=== PATIENT | male | born 1955 | race Two or more races ===

== ENCOUNTER 2016-11-02 14:37 | Inpatient (IN) | payer MEDICAID ==
[~2016-11-02] VITALS: Ht 162.6 cm; Wt 65.3 kg
[2016-11-02 14:40] VITALS: BP 179/70
[2016-11-02] MEDS ORDERED: RENAGEL400 MG ORAL (14:44)
[2016-11-02] MEDS ORDERED: SENSIPAR30 MG ORAL ×2 (14:44→15:47)
[2016-11-02] MEDS ORDERED: ACETAMINOPHEN325 M1 ORAL (14:44)
[2016-11-02] MEDS ORDERED: DIOVAN160 MG ORAL (14:44)
[2016-11-02] MEDS ORDERED: HYDRALAZINE HCL50 MG ORAL (14:44)
[2016-11-02] MEDS ORDERED: CARVEDILOL6.25 MG ORAL (14:44)
[2016-11-02] MEDS ORDERED: NORVASC10 MG ORAL (14:44)
[2016-11-02] MEDS ORDERED: ATORVASTATIN CA20 MG ORAL (14:44)
[2016-11-02 15:26] LABS: BASOPHILS % (AUTO) 0.9 % (0.0-2.0); EOSINOPHILS % (AUTO) 3.4 % (0.0-3.0); LYMPHOCYTES % (AUTO) 15.2 % (20.0-45.0); MEAN CORPUSCULAR HEMOGLOBIN 31.3 PG (27.0-31.0); MEAN CORPUSCULAR HGB CONC 33.1 G/DL (32.0-36.0); MEAN CORPUSCULAR VOLUME 95 FL (80-99); MEAN PLATELET VOLUME 5.9 FL (6.5-10.1); MONOCYTES % (AUTO) 12.2 % (1.0-10.0); NEUTROPHILS % (AUTO) 68.2 % (45.0-75.0); PLATELET COUNT 180 K/UL (150-450); RED BLOOD COUNT 3.22 M/UL (4.70-6.10); RED CELL DISTRIBUTION WIDTH 12.1 % (11.6-14.8); WHITE BLOOD COUNT 6.7 K/UL (4.8-10.8)
--- NOTE | 2016-11-02 15:37 | Diagnostic Imaging Report ---
Indication: Chest pain Technique: One view of the chest Comparison: none Findings: The heart is enlarged. Lungs and pleural spaces are clear. The bones are unremarkable. Impression: Cardiomegaly. No acute process
[2016-11-02 15:45] LABS: TROPONIN I < 0.30 ng/mL (<=0.30)
[2016-11-02] MEDS ORDERED: DEXILANT30 MG ORAL (15:45)
[2016-11-02] MEDS ORDERED: RENAGEL800 MG ORAL (15:46)
[2016-11-02 15:48] LABS: ALBUMIN/GLOBULIN RATIO 2.2 (1.0-2.7); CALCIUM 9.5 mg/dL (8.6-10.2); CREATININE 4.1 mg/dL (0.7-1.2); GLOMERULAR FILTRATION RATE 14.8 mL/min (>60); POTASSIUM 3.5 mEQ/L (3.4-4.9); TOTAL PROTEIN 6.5 g/dL (6.6-8.7)
--- NOTE | 2016-11-02 15:49 | Diagnostic Imaging Report ---
Indications: Headache, dizziness Technique: Spiral acquisitions obtained through the brain. Angled axial and coronal 5 x 5 mm slices were reconstructed. Total dose length product 1358 mGycm. CTDI vol(s) 70 mGy. Dose reduction achieved using automated exposure control Comparison: None Findings: No acute intracranial hemorrhage or edema. No mass effect or midline shift. There is an old lacunar infarct in the anterior limb of the right internal capsule, and perhaps a separate one in the right lentiform nucleus. There is minimal age-related enlargement of the ventricles and extra-axial CSF spaces. There is fairly extensive periventricular deep white matter chronic ischemic change the mastoids are clear. Sinuses are clear. The calvarium is intact. Impression: Chronic and age-related changes, including old right basal ganglia lacunar infarcts. Negative for acute intracranial bleed or mass effect The CT scanner at [facility] is accredited by the [employer] and the scans are performed using protocols designed to limit radiation exposure to as low as reasonably achievable to attain images of sufficient resolution adequate for diagnostic evaluation.
[2016-11-02 15:58] LABS: CKMB 1.5 ng/mL (< 6.7)
[2016-11-02] MEDS ORDERED: Miralax 17gm pkt ORAL PRN (16:15)
[2016-11-02] MEDS ORDERED: DuoNeb 0.5-3(2.5)mg/3ml neb HHN PRN (16:15)
--- NOTE | 2016-11-02 16:23 | Emergency Room Report ---
History of Present Illness General Chief Complaint: Dizziness Source: Patient Present Illness HPI 61-year-old male presents to ED for evaluation. Per EMS patient complaining of dizziness and vomiting. Patient was at dialysis today. Patient completed dialysis. Patient states he was feeling dizzy before the dialysis. Denies chest pain or shortness of breath. states that patient always gets dizzy after dialysis however she called 911 this time because he also had a headache. Blood pressure is elevated in triage. No other aggravating relieving factors. 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 Hx Cerebrovascular Accident: No Hx Seizures: No Review of Systems All Other Systems: negative except mentioned in HPI Physical Exam Vital Signs Date Time Temp Pulse Resp B/P Pulse Ox O2 Delivery O2 Flow Rate FiO2 11/02/16 14:26 98.2 78 16 184/86 96 Room Air Sp02 EP Interpretation: reviewed, normal General Appearance: no apparent distress, alert, GCS 15, non-toxic Head: normocephalic, atraumatic Eyes: bilateral eye PERRL, bilateral eye normal inspection ENT: hearing grossly normal, normal pharynx, no angioedema, normal voice Neck: full range of motion, supple/symm/no masses Respiratory: chest non-tender, lungs clear, normal breath sounds, speaking full sentences Cardiovascular #1: regular rate, rhythm, no edema Cardiovascular #2: 2+ carotid (R), 2+ carotid (L), 2+ radial (R), 2+ radial (L) , 2+ dorsalis pedis (R), 2+ dorsalis pedis (L) Gastrointestinal: normal bowel sounds, non tender, soft, non-distended, no guarding, no rebound Rectal: deferred Genitourinary: normal inspection, no CVA tenderness Musculoskeletal: back normal, gait/station normal, normal range of motion, non- tender Neurologic: alert, oriented x3, responsive, motor strength/tone normal, sensory intact, speech normal Psychiatric: judgement/insight normal, memory normal, mood/affect normal, no suicidal/homicidal ideation Reflexes: 3+ bicep (R), 3+ bicep (L), 3+ tricep (R), 3+ tricep (L), 3+ knee (R) , 3+ knee (L) Skin: normal color, no rash, warm/dry, well hydrated Lymphatic: no adenopathy Medical Decision Making Diagnostic Impression: Primary Impression: Hypertensive urgency Additional Impressions: ESRF (end stage renal failure) Dizziness ER Course Hospital Course 61-year-old male presents ED complaining of vomiting, dizziness, elevated BP. finished dialysis today Differential diagnoses include: MT/unstable angina, CVA/TIA, hypertensive urgency, hyperkalemia Clinical course Patient placed on stretcher. on cardiac cath lab radiology technologist. After initial history and physical I ordered labs, EKG, chest x-ray, CT Head, zofran labs reviewed- no leukocytosis, hemoglobin/hematocrit stable, BUN/Cr elevated, K ok, troponins negative EKG - repolarization, LVH interpreted by me Chest x-ray- unremarkable, cardiomegaly CT head negative Patient given hydralazine with BP improved. On reassessment dizziness and nausea improved Case discussed with Dr. Jung and he agreed to accept the patient to his service for further care and support I. I feel this is a highly complex case requiring extensive working including EKG/Rhythm strip, Xray/CT/US, Blood/urine lab work, repeat exams while in ED, and administration of strong opiates/narcotics for pain control, admission to hospital or close patient follow up. Diagnosis - hypertensive urgency, ESRF, dizziness admitted to telemetry in serious condition Labs Test 11/02/16 15:10 White Blood Count 6.7 K/UL (4.8-10.8) Red Blood Count 3.22 M/UL (4.70-6.10) Hemoglobin 10.1 G/DL (14.2-18.0) Hematocrit 30.5 % (42.0-52.0) Mean Corpuscular Volume 95 FL (80-99) Mean Corpuscular Hemoglobin 31.3 PG (27.0-31.0) Mean Corpuscular Hemoglobin Concent 33.1 G/DL (32.0-36.0) Red Cell Distribution Width 12.1 % (11.6-14.8) Platelet Count 180 K/UL (150-450) Mean Platelet Volume 5.9 FL (6.5-10.1) Neutrophils (%) (Auto) 68.2 % (45.0-75.0) Lymphocytes (%) (Auto) 15.2 % (20.0-45.0) Monocytes (%) (Auto) 12.2 % (1.0-10.0) Eosinophils (%) (Auto) 3.4 % (0.0-3.0) Basophils (%) (Auto) 0.9 % (0.0-2.0) Sodium Level 141 mEQ/L (135-145) Potassium Level 3.5 mEQ/L (3.4-4.9) Chloride Level 94 mEQ/L (98-107) Carbon Dioxide Level 34 mEQ/L (20-30) Anion Gap 13 (5-15) Blood Urea Nitrogen 15 mg/dL (7-23) Creatinine 4.1 mg/dL (0.7-1.2) Estimat Glomerular Filtration Rate 14.8 mL/min (>60) Glucose Level 104 mg/dL (74-106) Calcium Level 9.5 mg/dL (8.6-10.2) Total Bilirubin 0.5 mg/dL (0.0-1.2) Aspartate Amino Transf (AST/SGOT) 15 U/L (5-40) Alanine Aminotransferase (ALT/SGPT) 9 U/L (3-41) Alkaline Phosphatase 101 U/L (40-129) Total Creatine Kinase 144 U/L (38-174) Creatine Kinase MB 1.5 ng/mL (< 6.7) Creatine Kinase MB Relative Index 1.0 Troponin I < 0.30 ng/mL (<=0.30) Pro-B-Type Natriuretic Peptide 51300 pg/mL (0-125) Total Protein 6.5 g/dL (6.6-8.7) Albumin 4.5 g/dL (3.5-5.2) Globulin 2.0 g/dL Albumin/Globulin Ratio 2.2 (1.0-2.7) EKG Diagnostic Results Rate: normal Rhythm: NSR ST Segments: other - LVH with repolarization abnormality ASA given to the pt in ED: No Rhythm Strip Diag. Results EP Interpretation: yes Rhythm: NSR, no PVC's, no ectopy Chest X-Ray Diagnostic Results EP Interpretation: No Findings: no consolidation, no effusion, no pneumothorax, no acute cardiopulmonary disease, other - cardiomegaly Number of Views: 1 CT/MRI/US Diagnostic Results CT/MRI/US Diagnostic Results : Imaging Test Ordered: CT Head Impression no acute process Last Vital Signs Date Time Temp Pulse Resp B/P Pulse Ox O2 Delivery O2 Flow Rate FiO2 11/02/16 14:40 97.9 64 23 179/70 94 Room Air Status: improved Disposition: ADMITTED INPATIENT Condition: Serious Referrals: NON PHYSICIAN (PCP) MICHELL QUICK M.D. Nov 02, 2016 16:23
[2016-11-02 16:30] VITALS: BP 176/72
[2016-11-02 17:37] VITALS: BP 146/64
[2016-11-02] MEDS: HydrALAZINE 50mg tab ORAL SCH ×2 (18:00→22:08)
[2016-11-02 18:40] VITALS: BP 152/69
[2016-11-02 20:22] VITALS: BP 145/68
[2016-11-02 20:58] VITALS: BP 154/84
[2016-11-02] MEDS ORDERED: Morphine Sulfate 2mg/ml Inj IVP PRN (22:00)
[2016-11-02] MEDS: Heparin 5000 units/ml inj SUBQ SCH (22:08)
[2016-11-02] MEDS: Atorvastatin 20mg tab ORAL SCH (22:08)
[2016-11-02] MEDS: Carvedilol 6.25mg Tab ORAL SCH (22:08)
[2016-11-03 00:14] VITALS: BP 155/79
[2016-11-03 04:20] VITALS: BP 151/79
[2016-11-03] MEDS ORDERED: Morphine Sulfate 2mg/ml Inj IVP PRN (06:00)
[2016-11-03 07:48] VITALS: BP 182/82
[2016-11-03] MEDS: HydrALAZINE 50mg tab ORAL SCH ×3 (08:10→21:33)
[2016-11-03] MEDS: Carvedilol 6.25mg Tab ORAL SCH ×2 (08:11→21:21)
[2016-11-03] MEDS: Renagel 400mg cap ORAL SCH ×3 (08:12→17:40)
[2016-11-03] MEDS: Heparin 5000 units/ml inj SUBQ SCH ×2 (08:14→21:24)
[2016-11-03] MEDS ORDERED: Sensipar 30mg Tab ORAL SCH (09:00)
[2016-11-03 11:22] VITALS: BP 155/87
--- NOTE | 2016-11-03 13:41 | Consultation ---
History of Present Illness General Date patient seen: Nov 03, 2016 Chief Complaint: Dizziness Referring physician: Dr. Bhat Reason for Consultation: inpatient management Present Illness HPI 61-year-old male with hx of HTN, DM presents to ED for evaluation of dizziness and vomiting. Patient was at dialysis today when he started feeling dizzy before the dialysis. Denies chest pain or shortness of breath. states that patient always gets dizzy after dialysis however she called 911 this time because he also had a headache. Blood pressure is elevated in triage. No other aggravating relieving factors. Pt is admitted for further evaluation. Allergies: Coded Allergies: No Known Allergies (Unverified , 11/02/16) Medication History Scheduled Amlodipine Besylate (Norvasc), 10 MG ORAL DAILY, (Reported) Atorvastatin Calcium* (Atorvastatin Calcium*), 20 MG ORAL BEDTIME, (Reported) Carvedilol* (Carvedilol*), 6.25 MG ORAL EVERY 12 HOURS, (Reported) Cinacalcet* (Sensipar*), 90 MG ORAL DAILY, (Reported) Cinacalcet* (Sensipar*), 90 MG ORAL DAILY, (Reported) Dexlansoprazole (Dexilant), 30 MG ORAL DAILY, (Reported) Hydralazine Hcl* (Hydralazine Hcl*), 50 MG ORAL QID, (Reported) Sevelamer Hcl (Renagel), 2,400 MG ORAL THREE TIMES A DAY, (Reported) Valsartan (Diovan), 320 MG ORAL DAILY, (Reported) Scheduled PRN Acetaminophen* (Acetaminophen 325MG Tablet*), 325 MG ORAL Q4H PRN for For Pain, (Reported) Patient History Healthcare decision maker Resuscitation status Full Code Advanced Directive on File Past Medical/Surgical History Past Medical/Surgical History: (1) ESRF (end stage renal failure) Review of Systems Constitutional: Reports: weakness All Other Systems: negative except mentioned in HPI Physical Exam General Appearance: WD/WN, no apparent distress Lines, tubes and drains: peripheral HEENT: normocephalic, atraumatic Neck: non-tender, normal alignment Respiratory/Chest: chest wall non-tender, lungs clear Breasts: no masses Cardiovascular/Chest: normal peripheral pulses, normal rate Abdomen: normal bowel sounds Genitourinary/Rectal: normal genital exam, normal prostate exam Extremities: normal range of motion Last 24 Hour Vital Signs Date Time Temp Pulse Resp B/P Pulse Ox O2 Delivery O2 Flow Rate FiO2 11/03/16 12:53 155/87 11/03/16 12:00 68 11/03/16 11:22 97.7 69 20 155/87 99 Room Air 11/03/16 08:11 71 182/82 11/03/16 08:11 71 182/82 11/03/16 08:10 182/82 11/03/16 08:00 68 11/03/16 07:48 98.2 71 20 182/82 95 Room Air 11/03/16 04:20 98.3 67 20 151/79 98 Room Air 11/03/16 04:00 63 11/03/16 00:14 97.8 69 20 155/79 96 Room Air 11/03/16 00:00 66 11/02/16 22:08 154/84 11/02/16 22:08 71 154/84 11/02/16 20:58 97.9 71 18 154/84 95 Room Air 11/02/16 20:40 98.4 69 18 145/68 98 Room Air 11/02/16 20:22 98.4 69 18 145/68 98 Room Air 11/02/16 18:40 98.4 68 18 152/69 97 Room Air 11/02/16 18:00 152/69 11/02/16 17:37 70 19 146/64 94 Room Air 11/02/16 16:30 68 21 176/72 97 Room Air 11/02/16 16:21 176/79 11/02/16 14:40 97.9 64 23 179/70 94 Room Air 11/02/16 14:26 98.2 78 16 184/86 96 Room Air Intake and Output 11/02/16 11/03/16 19:00 07:00 Intake Total 345 ml Balance 345 ml Intake Oral 120 ml IV Total 225 ml Other 0 ml Laboratory Tests Test 11/02/16 15:10 White Blood Count 6.7 K/UL (4.8-10.8) Red Blood Count 3.22 M/UL (4.70-6.10) L Hemoglobin 10.1 G/DL (14.2-18.0) L Hematocrit 30.5 % (42.0-52.0) L Mean Corpuscular Volume 95 FL (80-99) Mean Corpuscular Hemoglobin 31.3 PG (27.0-31.0) H Mean Corpuscular Hemoglobin Concent 33.1 G/DL (32.0-36.0) Red Cell Distribution Width 12.1 % (11.6-14.8) Platelet Count 180 K/UL (150-450) Mean Platelet Volume 5.9 FL (6.5-10.1) L Neutrophils (%) (Auto) 68.2 % (45.0-75.0) Lymphocytes (%) (Auto) 15.2 % (20.0-45.0) L Monocytes (%) (Auto) 12.2 % (1.0-10.0) H Eosinophils (%) (Auto) 3.4 % (0.0-3.0) H Basophils (%) (Auto) 0.9 % (0.0-2.0) Sodium Level 141 mEQ/L (135-145) Potassium Level 3.5 mEQ/L (3.4-4.9) Chloride Level 94 mEQ/L (98-107) L Carbon Dioxide Level 34 mEQ/L (20-30) H Anion Gap 13 (5-15) Blood Urea Nitrogen 15 mg/dL (7-23) Creatinine 4.1 mg/dL (0.7-1.2) H Estimat Glomerular Filtration Rate 14.8 mL/min (>60) Glucose Level 104 mg/dL (74-106) Calcium Level 9.5 mg/dL (8.6-10.2) Total Bilirubin 0.5 mg/dL (0.0-1.2) Aspartate Amino Transf (AST/SGOT) 15 U/L (5-40) Alanine Aminotransferase (ALT/SGPT) 9 U/L (3-41) Alkaline Phosphatase 101 U/L (40-129) Total Creatine Kinase 144 U/L (38-174) Creatine Kinase MB 1.5 ng/mL (< 6.7) Creatine Kinase MB Relative Index 1.0 Troponin I < 0.30 ng/mL (<=0.30) Pro-B-Type Natriuretic Peptide 77853 pg/mL (0-125) H Total Protein 6.5 g/dL (6.6-8.7) L Albumin 4.5 g/dL (3.5-5.2) Globulin 2.0 g/dL Albumin/Globulin Ratio 2.2 (1.0-2.7) Height (Feet): 5 Height (Inches): 4.00 Weight (Pounds): 144 Medications Current Medications Medications (Trade) Dose Ordered Sig/Junior Route PRN Reason Start Time Stop Time Status Last Admin Dose Admin Acetaminophen (Tylenol) 650 mg Q4H PRN ORAL Mild Pain/Temp > 100.5 11/03/16 00:15 12/03/16 00:14 Albuterol/ Ipratropium (DuoNeb 0.5-3(2.5)mg/3ml) 3 ml Q4H PRN HHN Shortness of Breath 11/02/16 16:15 11/07/16 16:14 Amlodipine Besylate (Norvasc) 10 mg DAILY ORAL 11/03/16 09:00 12/03/16 08:59 11/03/16 08:11 Atorvastatin Calcium (Lipitor) 20 mg BEDTIME ORAL 11/02/16 21:00 12/02/16 20:59 11/02/16 22:08 Carvedilol (Coreg) 6.25 mg EVERY 12 HOURS ORAL 11/02/16 21:00 12/02/16 20:59 11/03/16 08:11 Cinacalcet (Sensipar) 90 mg DAILY ORAL 11/03/16 09:00 12/03/16 08:59 11/03/16 08:12 Dextrose (Dextrose 50%) STAT PRN IV Hypoglycemia 11/02/16 16:15 12/02/16 16:14 Heparin Sodium (Porcine) (Heparin 5000 units/ml) 5,000 units EVERY 12 HOURS SUBQ 11/02/16 21:00 12/02/16 20:59 11/03/16 08:14 Hydralazine HCl (Apresoline) 50 mg QID ORAL 11/02/16 18:00 12/02/16 17:59 11/03/16 12:53 Morphine Sulfate (Morphine Sulfate) 2 mg Q4H PRN IVP Severe Pain (Pain Scale 7-10) 11/03/16 06:00 11/10/16 05:59 Ondansetron HCl (Zofran) 4 mg Q6H PRN IVP Nausea & Vomiting 11/02/16 16:15 12/02/16 16:14 Polyethylene Glycol (Miralax) 17 gm DAILYPRN PRN ORAL Constipation 11/02/16 16:15 12/02/16 16:14 Sevelamer HCl (Renagel) 400 mg THREE TIMES A DAY ORAL 11/03/16 09:00 12/03/16 08:59 11/03/16 12:53 Temazepam (Restoril) 15 mg HSPRN PRN ORAL Insomnia 11/02/16 16:15 11/09/16 16:14 Assessment/Plan Problem List: (1) Hypertensive urgency ICD Codes: I16.0 - Hypertensive urgency SNOMED: 173541342 (2) Dizziness ICD Codes: R42 - Dizziness and giddiness SNOMED: 686575951, 254626681 (3) ESRF (end stage renal failure) ICD Codes: N18.6 - End stage renal disease SNOMED: 25750753 Assessment/Plan telemetry monitoring bp control nephrology to arrange for Hd neuro evaluation JAUN VARGHESE Nov 03, 2016 13:41
--- NOTE | 2016-11-03 14:47 | Consultation ---
Consult Note Consult Note asked to miladis [facility]iera dialysis management 61-year-old male presents to ED for evaluation. Per EMS patient complaining of dizziness and vomiting. Patient was at dialysis today. Patient completed dialysis. Patient states he was feeling dizzy before the dialysis. Denies chest pain or shortness of breath. states that patient always gets dizzy after dialysis however she called 911 this time because he also had a headache. Blood pressure is elevated in triage. No other aggravating relieving factors. Denies any other associated symptoms Past Medical History: HTN, renal disease, dialysis Hx Hypertension: Yes Hx Dialysis: Yes patient been on HD for 7 years- has a fistula left arm- Vital Signs Date Time Temp Pulse Resp B/P Pulse Ox O2 Delivery O2 Flow Rate FiO2 11/02/16 14:26 98.2 78 16 184/86 96 Room Air Assessment/Plan status: ESRD- HTN- Dizziness- Plan: HD in am as scheduled- BP control Per consultants TONNY MTZ Nov 03, 2016 14:47
[2016-11-03 15:23] VITALS: BP 146/75
--- NOTE | 2016-11-03 19:16 | History & Physical ---
History and Physical History & Physicial Dictated for Int Med-Dr Jung no. [id number]. LU GREENE Nov 03, 2016 19:16
--- NOTE | 2016-11-03 19:58 | Cardiology Progress Note ---
Assessment/Plan Assessment/Plan The patient is seen and examined, full consult note is dictated. Objective Last 24 Hour Vital Signs Date Time Temp Pulse Resp B/P Pulse Ox O2 Delivery O2 Flow Rate FiO2 11/03/16 16:00 68 11/03/16 15:23 97.5 67 20 146/75 96 Room Air 11/03/16 12:53 155/87 11/03/16 12:00 68 11/03/16 11:22 97.7 69 20 155/87 99 Room Air 11/03/16 08:11 71 182/82 11/03/16 08:11 71 182/82 11/03/16 08:10 182/82 11/03/16 08:00 68 11/03/16 07:48 98.2 71 20 182/82 95 Room Air 11/03/16 04:20 98.3 67 20 151/79 98 Room Air 11/03/16 04:00 63 11/03/16 00:14 97.8 69 20 155/79 96 Room Air 11/03/16 00:00 66 11/02/16 22:08 154/84 11/02/16 22:08 71 154/84 11/02/16 20:58 97.9 71 18 154/84 95 Room Air 11/02/16 20:40 98.4 69 18 145/68 98 Room Air 11/02/16 20:22 98.4 69 18 145/68 98 Room Air Intake and Output 11/02/16 11/03/16 19:00 07:00 Intake Total 345 ml Balance 345 ml Intake Oral 120 ml IV Total 225 ml Other 0 ml OSORIO OLGUIN Nov 03, 2016 19:58
[2016-11-03 20:00] VITALS: BP 150/72
[2016-11-03] MEDS: Atorvastatin 20mg tab ORAL SCH (21:22)
--- NOTE | 2016-11-03 23:00 | History and Physical Report ---
DATE OF ADMISSION: 11/02/2016 CHIEF COMPLAINT: The patient is a 61-year-old male, presents with chief complaint of nausea, vomiting, and dizziness. HISTORY OF PRESENT ILLNESS: The patient was in dialysis yesterday, 11/02/2016. The patient began to feel dizzy after dialysis. The patient has some nausea and vomiting. The 911 was called. The patient was transported to [place] emergency room for evaluation for vertigo, nausea and vomiting. The patient was admitted with chief complaint of vertigo, nausea, vomiting, to rule out acute cerebrovascular accident. REVIEW OF SYSTEMS: Constitutional: The patient denies weight loss or weight gain. The patient denies fever or chills. HEENT: The patient denies ear or throat pain. Cardiovascular: The patient denies palpitations or chest pain. Chest: The patient denies wheezes or shortness of breath. Abdominal: The patient complains of nausea and vomiting. The patient denies diarrhea or constipation. Genitourinary: The patient denies dysuria or increased frequency of urination. Neuromuscular: The patient denies seizures or generalized weakness. PAST MEDICAL HISTORY: Significant for: 1. Hypertension. 2. End-stage renal disease, the patient is on hemodialysis every Sunday, , and Sunday. PAST SURGICAL HISTORY: Significant for left arteriovenous graft placement in 2010. CURRENT MEDICATIONS: 1. Sensipar 90 mg one tablet p.o. daily. 2. Labetalol 100 mg one tablet p.o. twice daily. 3. Hydralazine 100 mg one tablet p.o. twice daily. 4. Clonidine 0.1 mg one tablet p.o. three times daily. 5. Omeprazole 20 mg one tablet p.o. daily. 6. Renagel 800 mg one tablet p.o. three times daily. 7. Valsartan 320 mg one tablet p.o. once daily. 8. Hydralazine 50 mg one tablet p.o. four times daily as needed. ALLERGIES: No known drug allergies. SOCIAL HISTORY: The patient is and disabled. The patient denies tobacco or alcohol use. PHYSICAL EXAMINATION: VITAL SIGNS: Temperature 97.5, respirations 20, pulse 67, and blood pressure 146-182/75-87. GENERAL: The patient is well-developed and well-nourished male, in no apparent distress. HEENT: Eyes, pupils are equal and responsive to light and accommodation. Extraocular movements are intact. NECK: Supple without lymphadenopathy. CHEST: Lungs are clear to auscultation bilaterally without wheezes or rales. CARDIOVASCULAR: Regular rhythm and rate. S1 and S2 are normal without murmurs, rubs, or gallops. ABDOMEN: Soft, nontender, and nondistended. Positive bowel sounds. No hepatosplenomegaly. Currently, no rebound or guarding noted. EXTREMITIES: Negative for clubbing, cyanosis, or edema. RECTAL/GENITAL: Refused. NEUROLOGIC: Cranial nerves II through XII are grossly intact without focal deficits. Motor strength is 5/5 bilaterally. Deep tendon reflexes are 2+ plantar. LABORATORY AND DIAGNOSTIC DATA: Laboratory Studies: WBC 6.7, hemoglobin 10.1, hematocrit 30.5, and platelets 180,000. Sodium 141, potassium 3.5, chloride 94, CO2 34, BUN 15, creatinine 4.1, and glucose 104. BNP elevated at 48,123. Troponin less than 0.3. CT scan of the brain was reported as no acute mass or hemorrhage. A chest x-ray is reported as no acute disease. ASSESSMENT: This is a 61-year-old male with: 1. Nausea and vomiting. 2. Vertigo. 3. END-STAGE RENAL DISEASE: 4. Congestive heart failure. 5. Hypertension. TREATMENT: 1. Congestive heart failure. Cardiology consultation has been obtained with Dr. Ian Wyatt. Serial troponin levels will be performed. We will follow recommendations of Cardiology. 2. Nausea and vomiting, may be secondary to vasovagal, secondary to dialysis. The patient's nausea and vomiting resolved with Zofran at this time. 3. Vertigo. A CT scan of the brain was within normal limits. An MRI of the brain is pending to rule out acute cerebrovascular accident. Carotid duplex and Dopplers are pending. An echocardiogram is pending. 4. Congestive heart failure. A Cardiology consultation has been obtained with Dr. Ian Wyatt. An echocardiogram is pending. Serial troponin levels will be run. 5. Hypertension. Continue hydralazine and labetalol as above. 6. End-stage renal disease. A Nephrology consultation has been obtained with Dr. Tejeda. The patient will require dialysis on 11/04/2016. Samson Medhat Bhat DR: KEVIN JOB#: [id number] CC:
[2016-11-04] VITALS: BP 165/81
[2016-11-04 04:00] VITALS: BP 180/82
[2016-11-04] MEDS: HydrALAZINE 50mg tab ORAL SCH ×2 (05:47→16:51)
[2016-11-04 08:00] VITALS: BP 153/80
[2016-11-04 08:21] LABS: ALANINE AMINOTRANSFERASE 10 U/L (3-41); ALBUMIN/GLOBULIN RATIO 1.8 (1.0-2.7); ANION GAP 16 (5-15); ASPARTATE AMINO TRANSFERASE 16 U/L (5-40); CARBON DIOXIDE 31 mEQ/L (20-30); CHLORIDE 92 mEQ/L (98-107); CHOLESTEROL 103 mg/dL (< 200); CHOLESTEROL/HDL RATIO 1.9 (3.3-4.4); CREATININE 8.9 mg/dL (0.7-1.2); CRP QUANT 0.6 mg/dL (< 0.5); GLOMERULAR FILTRATION RATE 6.1 mL/min (>60); LDL CHOLESTEROL (CALC.) 34 mg/dL (60-99); MAGNESIUM 2.2 mg/dL (1.7-2.5); PHOSPHORUS 4.5 mg/dL (2.5-4.8); POTASSIUM 4.2 mEQ/L (3.4-4.9); SODIUM 139 mEQ/L (135-145); TOTAL PROTEIN 6.5 g/dL (6.6-8.7); TROPONIN I < 0.30 ng/mL (<=0.30)
[2016-11-04 08:26] LABS: HEMOLYSIS 4; IRON 54 ug/dL (59-158); TOTAL IRON BINDING CAPACITY 232 ug/dL (250-400)
[2016-11-04] MEDS: Carvedilol 6.25mg Tab ORAL SCH ×2 (08:29→20:58)
[2016-11-04] MEDS: Renagel 400mg cap ORAL SCH ×3 (08:29→18:15)
[2016-11-04] MEDS: Heparin 5000 units/ml inj SUBQ SCH ×2 (08:31→21:00)
[2016-11-04 08:58] LABS: BASOPHILS % (AUTO) 1.2 % (0.0-2.0); EOSINOPHILS % (AUTO) 5.2 % (0.0-3.0); LYMPHOCYTES % (AUTO) 24.2 % (20.0-45.0); MEAN CORPUSCULAR HEMOGLOBIN 33.6 PG (27.0-31.0); MEAN CORPUSCULAR HGB CONC 35.2 G/DL (32.0-36.0); MEAN CORPUSCULAR VOLUME 96 FL (80-99); MEAN PLATELET VOLUME 6.7 FL (6.5-10.1); MONOCYTES % (AUTO) 11.8 % (1.0-10.0); NEUTROPHILS % (AUTO) 57.6 % (45.0-75.0); PLATELET COUNT 149 K/UL (150-450); RED BLOOD COUNT 2.76 M/UL (4.70-6.10); RED CELL DISTRIBUTION WIDTH 12.2 % (11.6-14.8); WHITE BLOOD COUNT 6.7 K/UL (4.8-10.8)
[2016-11-04 10:05] LABS: HEMOGLOBIN A1C 4.3 % (< 6.0)
[2016-11-04 12:00] VITALS: BP 145/74
--- NOTE | 2016-11-04 12:03 | General Progress Note ---
Assessment/Plan Status: unchanged Assessment/Plan status: ESRD- HTN- Dizziness- Plan: HD today as scheduled- BP control Per consultants Subjective ROS Limited/Unobtainable: No Allergies: Coded Allergies: No Known Allergies (Unverified , 11/02/16) Objective Last 24 Hour Vital Signs Date Time Temp Pulse Resp B/P Pulse Ox O2 Delivery O2 Flow Rate FiO2 11/04/16 08:29 67 153/80 11/04/16 08:29 67 153/80 11/04/16 08:00 97.9 67 18 153/80 Nasal Cannula 2.0 98 11/04/16 05:47 165/81 11/04/16 04:00 98.2 67 14 180/82 99 Room Air 11/04/16 03:59 165/81 11/04/16 01:47 71 11/04/16 00:00 98.1 69 20 165/81 94 Room Air 11/03/16 21:33 150/72 11/03/16 21:21 18 150/72 11/03/16 20:00 97.9 18 18 150/72 96 Room Air 11/03/16 20:00 68 11/03/16 16:00 68 11/03/16 15:23 97.5 67 20 146/75 96 Room Air 11/03/16 12:53 155/87 11/03/16 12:00 68 Intake and Output 11/03/16 11/04/16 19:00 07:00 Intake Total 630 ml Output Total 400 ml Balance 630 ml -400 ml Intake Oral 630 ml Output Urine Total 400 ml Laboratory Tests 11/04/16 07:05: White Blood Count 6.7, Red Blood Count 2.76L, Hemoglobin 9.3L, Hematocrit 26.4L , Mean Corpuscular Volume 96, Mean Corpuscular Hemoglobin 33.6H, Mean Corpuscular Hemoglobin Concent 35.2, Red Cell Distribution Width 12.2, Platelet Count 149L, Mean Platelet Volume 6.7, Neutrophils (%) (Auto) 57.6, Lymphocytes ( %) (Auto) 24.2, Monocytes (%) (Auto) 11.8H, Eosinophils (%) (Auto) 5.2H, Basophils (%) (Auto) 1.2, Sodium Level 139, Potassium Level 4.2, Chloride Level 92L, Carbon Dioxide Level 31H, Anion Gap 16H, Blood Urea Nitrogen 39H, Creatinine 8.9H, Estimat Glomerular Filtration Rate 6.1, Glucose Level 83, Hemoglobin A1c 4.3, Uric Acid 6.0, Calcium Level 9.0, Phosphorus Level 4.5, Magnesium Level 2.2, Iron Level 54L, Total Iron Binding Capacity 232L, Percent Iron Saturation 23, Unsaturated Iron Binding 178, Total Bilirubin 0.5, Gamma Glutamyl Transpeptidase 27, Aspartate Amino Transf (AST/SGOT) 16, Alanine Aminotransferase (ALT/SGPT) 10, Alkaline Phosphatase 96, Total Creatine Kinase 79, Troponin I < 0.30, C-Reactive Protein, Quantitative 0.6H, Pro-B-Type Natriuretic Peptide 53392S, Total Protein 6.5L, Albumin 4.2, Globulin 2.3, Albumin/Globulin Ratio 1.8, Triglycerides Level 80, Cholesterol Level 103, LDL Cholesterol 34L, HDL Cholesterol 53, Cholesterol/HDL Ratio 1.9L, Vitamin B12 Level 1345H, Thyroid Stimulating Hormone (TSH) 3.340 Height (Feet): 5 Height (Inches): 4.00 Weight (Pounds): 144 General Appearance: no apparent distress Objective no change in physical exam TONNY MTZ Nov 04, 2016 12:03
--- NOTE | 2016-11-04 14:46 | Cardiology Report ---
APPROVED REPORT EXAM: Two-dimensional and M-mode echocardiogram with Doppler and color Doppler. INDICATION LV function M-Mode DIMENSIONS IVSd1.8 (0.7-1.1cm)Left Atrium (MM)3.6 (1.6-4.0cm) LVDd5.0 (3.5-5.6cm)Aortic Root4.2 (2.0-3.7cm) PWd2.5 (0.7-1.1cm)Aortic Cusp Exc.1.8 (1.5-2.0cm) LVDs3.0 (2.5-4.0cm) PWs2.9 cm Normal left ventricular chamber size, systolic function and wall motion. Left ventricular ejection fraction estimated to be 60-65 %. Moderate left ventricular hypertrophy. Anterior Echo-free space, may be due to pericardial fat or effusion. Moderate left atrial enlargement. Mild right atrial enlargement. Right ventricular chamber size is within normal limits. Focal aortic valve sclerosis with adequate cusp excursion. Thickened mitral valve leaflets with normal excursion. Mitral annulus and aortic root calcification. Normal pulmonic valve structure. Normal tricuspid valve structure. IVC at normal size with physiologic collapse. A color flow and spectral Doppler study was performed and revealed: Trace aortic regurgitation. Moderate mitral regurgitation. Mitral diastolic velocities suggest reduced left ventricular relaxation c/w moderate LV diastolic dysfunction (Grade II). Mild tricuspid regurgitation. Tricuspid systolic velocities suggests peak right ventricular systolic pressure of 36 mmHg, consistent with mild pulmonary hypertension.
--- NOTE | 2016-11-04 15:54 | Internal Med Progress Note ---
Subjective Date of Service: Nov 04, 2016 Physician Name PerlitaLu Attending Physician Guy Jung MD Current Medications Medications (Trade) Dose Ordered Sig/Junior Route PRN Reason Start Time Stop Time Status Last Admin Dose Admin Acetaminophen (Tylenol) 650 mg Q4H PRN ORAL Mild Pain/Temp > 100.5 11/03/16 00:15 12/03/16 00:14 11/04/16 12:26 Albuterol/ Ipratropium (DuoNeb 0.5-3(2.5)mg/3ml) 3 ml Q4H PRN HHN Shortness of Breath 11/02/16 16:15 11/07/16 16:14 Amlodipine Besylate (Norvasc) 10 mg DAILY ORAL 11/03/16 09:00 12/03/16 08:59 11/04/16 08:29 Atorvastatin Calcium (Lipitor) 20 mg BEDTIME ORAL 11/02/16 21:00 12/02/16 20:59 11/03/16 21:22 Carvedilol (Coreg) 6.25 mg EVERY 12 HOURS ORAL 11/02/16 21:00 12/02/16 20:59 11/04/16 08:29 Cinacalcet (Sensipar) 90 mg QHS ORAL 11/04/16 21:00 12/04/16 20:59 Clonidine HCl (Catapres) 0.1 mg Q4H PRN ORAL bp over 165 syst 11/03/16 15:00 12/03/16 14:59 11/04/16 03:59 Dextrose (Dextrose 50%) STAT PRN IV Hypoglycemia 11/02/16 16:15 12/02/16 16:14 Heparin Sodium (Porcine) (Heparin 5000 units/ml) 5,000 units EVERY 12 HOURS SUBQ 11/02/16 21:00 12/02/16 20:59 11/04/16 08:31 Hydralazine HCl (Apresoline) 50 mg Q8HR ORAL 11/03/16 22:00 12/03/16 21:59 11/04/16 05:47 Morphine Sulfate (Morphine Sulfate) 2 mg Q4H PRN IVP Severe Pain (Pain Scale 7-10) 11/03/16 06:00 11/10/16 05:59 Ondansetron HCl (Zofran) 4 mg Q6H PRN IVP Nausea & Vomiting 11/02/16 16:15 12/02/16 16:14 Pantoprazole (Protonix) 40 mg DAILY ORAL 11/03/16 16:00 12/03/16 15:59 11/04/16 08:29 Polyethylene Glycol (Miralax) 17 gm DAILYPRN PRN ORAL Constipation 11/02/16 16:15 12/02/16 16:14 Sevelamer HCl (Renagel) 800 mg THREE TIMES A DAY ORAL 11/04/16 09:00 12/04/16 08:59 11/04/16 12:26 Temazepam (Restoril) 15 mg HSPRN PRN ORAL Insomnia 11/02/16 16:15 11/09/16 16:14 Allergies: Coded Allergies: No Known Allergies (Unverified , 11/02/16) ROS Limited/Unobtainable: No Constitutional: Reports: no symptoms HEENT: Reports: no symptoms Cardiovascular: Reports: no symptoms Respiratory: Reports: no symptoms Gastrointestinal/Abdominal: Reports: no symptoms Genitourinary: Reports: no symptoms Neurologic/Psychiatric: Reports: other - dizzy Subjective 61 YO M admitted with vertigo. Cover for Int Med-Dr Jung. Objective Last Vital Signs Date Time Temp Pulse Resp B/P Pulse Ox O2 Delivery O2 Flow Rate FiO2 11/04/16 12:50 Room Air 11/04/16 12:00 97.9 64 18 145/74 2.0 98 11/04/16 04:00 99 Laboratory Tests Test 11/04/16 07:05 White Blood Count 6.7 K/UL (4.8-10.8) Red Blood Count 2.76 M/UL (4.70-6.10) L Hemoglobin 9.3 G/DL (14.2-18.0) L Hematocrit 26.4 % (42.0-52.0) L Mean Corpuscular Volume 96 FL (80-99) Mean Corpuscular Hemoglobin 33.6 PG (27.0-31.0) H Mean Corpuscular Hemoglobin Concent 35.2 G/DL (32.0-36.0) Red Cell Distribution Width 12.2 % (11.6-14.8) Platelet Count 149 K/UL (150-450) L Mean Platelet Volume 6.7 FL (6.5-10.1) Neutrophils (%) (Auto) 57.6 % (45.0-75.0) Lymphocytes (%) (Auto) 24.2 % (20.0-45.0) Monocytes (%) (Auto) 11.8 % (1.0-10.0) H Eosinophils (%) (Auto) 5.2 % (0.0-3.0) H Basophils (%) (Auto) 1.2 % (0.0-2.0) Sodium Level 139 mEQ/L (135-145) Potassium Level 4.2 mEQ/L (3.4-4.9) Chloride Level 92 mEQ/L (98-107) L Carbon Dioxide Level 31 mEQ/L (20-30) H Anion Gap 16 (5-15) H Blood Urea Nitrogen 39 mg/dL (7-23) H Creatinine 8.9 mg/dL (0.7-1.2) H Estimat Glomerular Filtration Rate 6.1 mL/min (>60) Glucose Level 83 mg/dL (74-106) Hemoglobin A1c 4.3 % (< 6.0) Uric Acid 6.0 mg/dL (3.0-7.5) Calcium Level 9.0 mg/dL (8.6-10.2) Phosphorus Level 4.5 mg/dL (2.5-4.8) Magnesium Level 2.2 mg/dL (1.7-2.5) Iron Level 54 ug/dL (59-158) L Total Iron Binding Capacity 232 ug/dL (250-400) L Percent Iron Saturation 23 % (15-50) Unsaturated Iron Binding 178 ug/dL (112-346) Total Bilirubin 0.5 mg/dL (0.0-1.2) Gamma Glutamyl Transpeptidase 27 U/L (8-61) Aspartate Amino Transf (AST/SGOT) 16 U/L (5-40) Alanine Aminotransferase (ALT/SGPT) 10 U/L (3-41) Alkaline Phosphatase 96 U/L (40-129) Total Creatine Kinase 79 U/L (38-174) Troponin I < 0.30 ng/mL (<=0.30) C-Reactive Protein, Quantitative 0.6 mg/dL (< 0.5) H Pro-B-Type Natriuretic Peptide 62569 pg/mL (0-125) H Total Protein 6.5 g/dL (6.6-8.7) L Albumin 4.2 g/dL (3.5-5.2) Globulin 2.3 g/dL Albumin/Globulin Ratio 1.8 (1.0-2.7) Triglycerides Level 80 mg/dL (< 150) Cholesterol Level 103 mg/dL (< 200) LDL Cholesterol 34 mg/dL (60-99) L HDL Cholesterol 53 mg/dL (> 60) Cholesterol/HDL Ratio 1.9 (3.3-4.4) L Vitamin B12 Level 1345 pg/mL (211-946) H Thyroid Stimulating Hormone (TSH) 3.340 uIU/mL (0.300-4.500) Microbiology Date/Time Source Procedure Growth Status 11/02/16 18:10 Nasal Nares MRSA Culture - Final NO METHICILLIN RESISTANT STAPH AUREUS... Complete 11/02/16 18:10 Rectum VRE Culture - Final NO VANCOMYCIN RESISTANT ENTEROCOCCUS ... Complete Intake and Output 11/03/16 11/04/16 19:00 07:00 Intake Total 630 ml Output Total 400 ml Balance 630 ml -400 ml Intake Oral 630 ml Output Urine Total 400 ml Objective General: alert, cooperative, no distress, appears stated age Head: normocephalic, without obvious abnormality, atraumatic Eyes: conjunctivae/corneas clear. PERRL, EOM's intact Throat: lips, mucosa, and tongue normal. MMM Neck: supple, symmetrical, trachea midline, and no JVD Lungs: clear to auscultation bilaterally Heart: regular rate and rhythm, S1, S2 normal, no murmur, click, rub or gallop Abdomen: soft, non-tender, non-distended, bowel sounds normal; no masses or organomegaly Extremities: extremities normal, atraumatic, no cyanosis or edema Pulses: 2+ and symmetric Skin: skin color, texture, turgor normal; no rashes or lesions Neurologic: grossly normal, no focal deficits Assessment/Plan Problem List: (1) Nausea (2) Vertigo Assessment & Plan: W/U in progress. (3) ESRD (end stage renal disease) on dialysis Assessment & Plan: See nephrology note. Dialysis today. (4) CHF (congestive heart failure) Assessment & Plan: ?volume overload? See cardiology note. LVEF 60-65% (5) Hypertension Status: not improved LU GREENE Nov 04, 2016 15:54
[2016-11-04 16:00] VITALS: BP 158/71
--- NOTE | 2016-11-04 18:51 | Pulmonology Progress Note ---
Assessment/Plan Problems: (1) Hypertensive urgency (2) Dizziness (3) ESRF (end stage renal failure) Assessment/Plan bp is still fluctuating HD by nephrologis symptomatic treatment all labs, notes, studies reviewed Subjective ROS Limited/Unobtainable: No Constitutional: Reports: no symptoms HEENT: Repors: no symptoms Respiratory: Reports: no symptoms Allergies: Coded Allergies: No Known Allergies (Unverified , 11/02/16) Objective Last 24 Hour Vital Signs Date Time Temp Pulse Resp B/P Pulse Ox O2 Delivery O2 Flow Rate FiO2 11/04/16 16:51 170/82 11/04/16 16:10 Room Air 2.0 98 11/04/16 16:03 Room Air 11/04/16 16:00 62 11/04/16 16:00 62 18 158/71 99 Room Air 11/04/16 12:50 Room Air 11/04/16 12:00 97.9 64 18 145/74 Nasal Cannula 2.0 98 11/04/16 12:00 64 11/04/16 08:29 67 153/80 11/04/16 08:29 67 153/80 11/04/16 08:00 97.9 67 18 153/80 Nasal Cannula 2.0 98 11/04/16 08:00 65 11/04/16 05:47 165/81 11/04/16 04:00 98.2 67 14 180/82 99 Room Air 11/04/16 03:59 165/81 11/04/16 01:47 71 11/04/16 00:00 98.1 69 20 165/81 94 Room Air 11/03/16 21:33 150/72 11/03/16 21:21 18 150/72 11/03/16 20:00 97.9 18 18 150/72 96 Room Air 11/03/16 20:00 68 Intake and Output 11/03/16 11/04/16 19:00 07:00 Intake Total 630 ml Output Total 400 ml Balance 630 ml -400 ml Intake Oral 630 ml Output Urine Total 400 ml General Appearance: WD/WN HEENT: normocephalic Respiratory/Chest: chest wall non-tender, lungs clear Cardiovascular: normal peripheral pulses Abdomen: normal bowel sounds Genitourinary: normal external genitalia Microbiology Date/Time Source Procedure Growth Status 11/02/16 18:10 Nasal Nares MRSA Culture - Final NO METHICILLIN RESISTANT STAPH AUREUS... Complete 11/02/16 18:10 Rectum VRE Culture - Final NO VANCOMYCIN RESISTANT ENTEROCOCCUS ... Complete Laboratory Tests 11/04/16 07:05: White Blood Count 6.7, Red Blood Count 2.76L, Hemoglobin 9.3L, Hematocrit 26.4L , Mean Corpuscular Volume 96, Mean Corpuscular Hemoglobin 33.6H, Mean Corpuscular Hemoglobin Concent 35.2, Red Cell Distribution Width 12.2, Platelet Count 149L, Mean Platelet Volume 6.7, Neutrophils (%) (Auto) 57.6, Lymphocytes ( %) (Auto) 24.2, Monocytes (%) (Auto) 11.8H, Eosinophils (%) (Auto) 5.2H, Basophils (%) (Auto) 1.2, Sodium Level 139, Potassium Level 4.2, Chloride Level 92L, Carbon Dioxide Level 31H, Anion Gap 16H, Blood Urea Nitrogen 39H, Creatinine 8.9H, Estimat Glomerular Filtration Rate 6.1, Glucose Level 83, Hemoglobin A1c 4.3, Uric Acid 6.0, Calcium Level 9.0, Phosphorus Level 4.5, Magnesium Level 2.2, Iron Level 54L, Total Iron Binding Capacity 232L, Percent Iron Saturation 23, Unsaturated Iron Binding 178, Total Bilirubin 0.5, Gamma Glutamyl Transpeptidase 27, Aspartate Amino Transf (AST/SGOT) 16, Alanine Aminotransferase (ALT/SGPT) 10, Alkaline Phosphatase 96, Total Creatine Kinase 79, Troponin I < 0.30, C-Reactive Protein, Quantitative 0.6H, Pro-B-Type Natriuretic Peptide 59373B, Total Protein 6.5L, Albumin 4.2, Globulin 2.3, Albumin/Globulin Ratio 1.8, Triglycerides Level 80, Cholesterol Level 103, LDL Cholesterol 34L, HDL Cholesterol 53, Cholesterol/HDL Ratio 1.9L, Vitamin B12 Level 1345H, Thyroid Stimulating Hormone (TSH) 3.340 Current Medications Medications (Trade) Dose Ordered Sig/Junior Route PRN Reason Start Time Stop Time Status Last Admin Dose Admin Acetaminophen (Tylenol) 650 mg Q4H PRN ORAL Mild Pain/Temp > 100.5 11/03/16 00:15 12/03/16 00:14 11/04/16 12:26 Albuterol/ Ipratropium (DuoNeb 0.5-3(2.5)mg/3ml) 3 ml Q4H PRN HHN Shortness of Breath 11/02/16 16:15 11/07/16 16:14 Amlodipine Besylate (Norvasc) 10 mg DAILY ORAL 11/03/16 09:00 12/03/16 08:59 11/04/16 08:29 Atorvastatin Calcium (Lipitor) 20 mg BEDTIME ORAL 11/02/16 21:00 12/02/16 20:59 11/03/16 21:22 Carvedilol (Coreg) 6.25 mg EVERY 12 HOURS ORAL 11/02/16 21:00 12/02/16 20:59 11/04/16 08:29 Cinacalcet (Sensipar) 90 mg QHS ORAL 11/04/16 21:00 12/04/16 20:59 Clonidine HCl (Catapres) 0.1 mg Q4H PRN ORAL bp over 165 syst 11/03/16 15:00 12/03/16 14:59 11/04/16 03:59 Dextrose (Dextrose 50%) STAT PRN IV Hypoglycemia 11/02/16 16:15 12/02/16 16:14 Heparin Sodium (Porcine) (Heparin 5000 units/ml) 5,000 units EVERY 12 HOURS SUBQ 11/02/16 21:00 12/02/16 20:59 11/04/16 08:31 Hydralazine HCl (Apresoline) 50 mg Q8HR ORAL 11/03/16 22:00 12/03/16 21:59 11/04/16 16:51 Morphine Sulfate (Morphine Sulfate) 2 mg Q4H PRN IVP Severe Pain (Pain Scale 7-10) 11/03/16 06:00 11/10/16 05:59 Ondansetron HCl (Zofran) 4 mg Q6H PRN IVP Nausea & Vomiting 11/02/16 16:15 12/02/16 16:14 Pantoprazole (Protonix) 40 mg DAILY ORAL 11/03/16 16:00 12/03/16 15:59 11/04/16 08:29 Polyethylene Glycol (Miralax) 17 gm DAILYPRN PRN ORAL Constipation 11/02/16 16:15 12/02/16 16:14 Sevelamer HCl (Renagel) 800 mg THREE TIMES A DAY ORAL 11/04/16 09:00 12/04/16 08:59 11/04/16 18:15 Temazepam (Restoril) 15 mg HSPRN PRN ORAL Insomnia 11/02/16 16:15 11/09/16 16:14 JAUN VARGHESE Nov 04, 2016 18:51
[2016-11-04 20:00] VITALS: BP 151/77
[2016-11-04] MEDS ORDERED: Sensipar 30mg Tab ORAL SCH (21:00)
[2016-11-04] MEDS ORDERED: Atorvastatin 20mg tab ORAL SCH (21:00)
[2016-11-05] VITALS: BP 159/83
[2016-11-05] MEDS: HydrALAZINE 50mg tab ORAL SCH ×2 (00:57→05:45)
[2016-11-05 04:00] VITALS: BP 162/81
[2016-11-05 08:00] VITALS: BP 142/87
[2016-11-05 08:20] LABS: BASOPHILS % (AUTO) 1.3 % (0.0-2.0); EOSINOPHILS % (AUTO) 5.6 % (0.0-3.0); LYMPHOCYTES % (AUTO) 16.1 % (20.0-45.0); MEAN CORPUSCULAR HGB CONC 33.1 G/DL (32.0-36.0); MEAN CORPUSCULAR VOLUME 97 FL (80-99); MEAN PLATELET VOLUME 6.2 FL (6.5-10.1); MONOCYTES % (AUTO) 12.7 % (1.0-10.0); NEUTROPHILS % (AUTO) 64.2 % (45.0-75.0); PLATELET COUNT 179 K/UL (150-450); RED BLOOD COUNT 3.19 M/UL (4.70-6.10); RED CELL DISTRIBUTION WIDTH 12.3 % (11.6-14.8); WHITE BLOOD COUNT 6.9 K/UL (4.8-10.8)
[2016-11-05 08:38] LABS: CALCIUM 8.7 mg/dL (8.6-10.2); CREATININE 7.4 mg/dL (0.7-1.2); GLOMERULAR FILTRATION RATE 7.5 mL/min (>60)
[2016-11-05] MEDS: Renagel 400mg cap ORAL SCH ×3 (08:59→17:36)
[2016-11-05] MEDS ORDERED: Irbesartan 150mg tablet ORAL SCH (09:00)
[2016-11-05] MEDS: Carvedilol 6.25mg Tab ORAL SCH ×2 (09:00→20:12)
[2016-11-05] MEDS: Heparin 5000 units/ml inj SUBQ SCH ×2 (09:04→20:11)
--- NOTE | 2016-11-05 11:08 | General Progress Note ---
Assessment/Plan Status: stable Assessment/Plan status: ESRD- HTN- Dizziness- Plan: HD 11/04 next 11/07 BP control, adjust meds Per consultants DC planning Subjective ROS Limited/Unobtainable: No Allergies: Coded Allergies: No Known Allergies (Unverified , 11/02/16) Objective Last 24 Hour Vital Signs Date Time Temp Pulse Resp B/P Pulse Ox O2 Delivery O2 Flow Rate FiO2 11/05/16 09:00 152/83 11/05/16 09:00 69 152/83 11/05/16 09:00 69 152/83 11/05/16 08:00 73 11/05/16 08:00 96.7 96 17 142/87 97 Nasal Cannula 2.0 11/05/16 05:45 162/81 11/05/16 04:42 67 11/05/16 04:00 99.9 70 20 162/81 97 Room Air 11/05/16 00:58 69 11/05/16 00:57 159/83 11/05/16 00:00 98.1 69 18 159/83 97 Nasal Cannula 2.0 11/04/16 20:58 72 151/77 11/04/16 20:00 67 11/04/16 20:00 98.1 72 20 151/77 98 Nasal Cannula 2.0 11/04/16 16:51 170/82 11/04/16 16:10 Room Air 2.0 98 11/04/16 16:03 Room Air 11/04/16 16:00 62 11/04/16 16:00 62 18 158/71 99 Room Air 11/04/16 12:50 Room Air 11/04/16 12:00 97.9 64 18 145/74 Nasal Cannula 2.0 98 11/04/16 12:00 64 Intake and Output 11/04/16 11/05/16 19:00 07:00 Intake Total 480 ml 240 ml Output Total 4201 ml Balance -3721 ml 240 ml Intake Oral 480 ml 240 ml Stool Total 1 ml Hemodialysis UF 4200 ml # Bowel Movements 1 Laboratory Tests 11/05/16 07:15: White Blood Count 6.9, Red Blood Count 3.19L, Hemoglobin 10.2L, Hematocrit 30.8L , Mean Corpuscular Volume 97, Mean Corpuscular Hemoglobin 32.0H, Mean Corpuscular Hemoglobin Concent 33.1, Red Cell Distribution Width 12.3, Platelet Count 179, Mean Platelet Volume 6.2L, Neutrophils (%) (Auto) 64.2, Lymphocytes ( %) (Auto) 16.1L, Monocytes (%) (Auto) 12.7H, Eosinophils (%) (Auto) 5.6H, Basophils (%) (Auto) 1.3, Sodium Level 141, Potassium Level 4.0, Chloride Level 93L, Carbon Dioxide Level 30, Anion Gap 18H, Blood Urea Nitrogen 30H, Creatinine 7.4H, Estimat Glomerular Filtration Rate 7.5, Glucose Level 84, Calcium Level 8.7 Height (Feet): 5 Height (Inches): 4.00 Weight (Pounds): 144 General Appearance: no apparent distress Objective no change in physical exam TONNY MTZ Nov 05, 2016 11:08
[2016-11-05 12:02] VITALS: BP 149/73
[2016-11-05] MEDS ORDERED: HydrALAZINE 25mg tab ORAL SCH (14:00)
--- NOTE | 2016-11-05 15:50 | Pulmonology Progress Note ---
Assessment/Plan Problems: (1) Hypertensive urgency (2) Dizziness (3) ESRF (end stage renal failure) Assessment/Plan bp is still fluctuating HD by nephrologis symptomatic treatment all labs, notes, studies reviewed dc planning med/surg if ok with Cardiology Subjective ROS Limited/Unobtainable: No Constitutional: Reports: no symptoms HEENT: Repors: no symptoms Respiratory: Reports: no symptoms Allergies: Coded Allergies: No Known Allergies (Unverified , 11/02/16) Objective Last 24 Hour Vital Signs Date Time Temp Pulse Resp B/P Pulse Ox O2 Delivery O2 Flow Rate FiO2 11/05/16 13:54 149/73 11/05/16 12:02 97.0 64 18 149/73 98 Nasal Cannula 2.0 11/05/16 09:00 152/83 11/05/16 09:00 69 152/83 11/05/16 09:00 69 152/83 11/05/16 08:00 73 11/05/16 08:00 96.7 96 17 142/87 97 Nasal Cannula 2.0 11/05/16 05:45 162/81 11/05/16 04:42 67 11/05/16 04:00 99.9 70 20 162/81 97 Room Air 11/05/16 00:58 69 11/05/16 00:57 159/83 11/05/16 00:00 98.1 69 18 159/83 97 Nasal Cannula 2.0 11/04/16 20:58 72 151/77 11/04/16 20:00 67 11/04/16 20:00 98.1 72 20 151/77 98 Nasal Cannula 2.0 11/04/16 16:51 170/82 11/04/16 16:10 Room Air 2.0 98 11/04/16 16:03 Room Air 11/04/16 16:00 62 11/04/16 16:00 62 18 158/71 99 Room Air Intake and Output 11/04/16 11/05/16 19:00 07:00 Intake Total 480 ml 240 ml Output Total 4201 ml Balance -3721 ml 240 ml Intake Oral 480 ml 240 ml Stool Total 1 ml Hemodialysis UF 4200 ml # Bowel Movements 1 General Appearance: WD/WN HEENT: normocephalic, atraumatic Respiratory/Chest: chest wall non-tender, lungs clear, normal breath sounds Cardiovascular: normal peripheral pulses, normal rate Abdomen: normal bowel sounds, no organomegaly Genitourinary: normal external genitalia Extremities: no cyanosis Microbiology Date/Time Source Procedure Growth Status 11/02/16 18:10 Nasal Nares MRSA Culture - Final NO METHICILLIN RESISTANT STAPH AUREUS... Complete 11/02/16 18:10 Rectum VRE Culture - Final NO VANCOMYCIN RESISTANT ENTEROCOCCUS ... Complete Laboratory Tests 11/05/16 07:15: White Blood Count 6.9, Red Blood Count 3.19L, Hemoglobin 10.2L, Hematocrit 30.8L , Mean Corpuscular Volume 97, Mean Corpuscular Hemoglobin 32.0H, Mean Corpuscular Hemoglobin Concent 33.1, Red Cell Distribution Width 12.3, Platelet Count 179, Mean Platelet Volume 6.2L, Neutrophils (%) (Auto) 64.2, Lymphocytes ( %) (Auto) 16.1L, Monocytes (%) (Auto) 12.7H, Eosinophils (%) (Auto) 5.6H, Basophils (%) (Auto) 1.3, Sodium Level 141, Potassium Level 4.0, Chloride Level 93L, Carbon Dioxide Level 30, Anion Gap 18H, Blood Urea Nitrogen 30H, Creatinine 7.4H, Estimat Glomerular Filtration Rate 7.5, Glucose Level 84, Calcium Level 8.7 Current Medications Medications (Trade) Dose Ordered Sig/Junior Route PRN Reason Start Time Stop Time Status Last Admin Dose Admin Acetaminophen (Tylenol) 650 mg Q4H PRN ORAL Mild Pain/Temp > 100.5 11/03/16 00:15 12/03/16 00:14 11/04/16 12:26 Albuterol/ Ipratropium (DuoNeb 0.5-3(2.5)mg/3ml) 3 ml Q4H PRN HHN Shortness of Breath 11/02/16 16:15 11/07/16 16:14 Amlodipine Besylate (Norvasc) 10 mg DAILY ORAL 11/03/16 09:00 12/03/16 08:59 11/05/16 09:00 Atorvastatin Calcium (Lipitor) 40 mg BEDTIME ORAL 11/04/16 21:00 12/04/16 20:59 11/04/16 21:05 Carvedilol (Coreg) 6.25 mg EVERY 12 HOURS ORAL 11/02/16 21:00 12/02/16 20:59 11/05/16 09:00 Cinacalcet (Sensipar) 90 mg QHS ORAL 11/04/16 21:00 12/04/16 20:59 11/04/16 20:58 Clonidine HCl (Catapres) 0.1 mg Q4H PRN ORAL bp over 165 syst 11/03/16 15:00 12/03/16 14:59 11/04/16 03:59 Dextrose (Dextrose 50%) STAT PRN IV Hypoglycemia 11/02/16 16:15 12/02/16 16:14 Heparin Sodium (Porcine) (Heparin 5000 units/ml) 5,000 units EVERY 12 HOURS SUBQ 11/02/16 21:00 12/02/16 20:59 11/05/16 09:04 Hydralazine HCl (Apresoline) 75 mg Q8HR ORAL 11/05/16 14:00 12/05/16 13:59 11/05/16 13:54 Irbesartan (Avapro) 300 mg DAILY ORAL 11/05/16 09:00 12/05/16 08:59 11/05/16 09:00 Morphine Sulfate (Morphine Sulfate) 2 mg Q4H PRN IVP Severe Pain (Pain Scale 7-10) 11/03/16 06:00 11/10/16 05:59 Ondansetron HCl (Zofran) 4 mg Q6H PRN IVP Nausea & Vomiting 11/02/16 16:15 12/02/16 16:14 Pantoprazole (Protonix) 40 mg DAILY ORAL 11/03/16 16:00 12/03/16 15:59 11/05/16 08:58 Polyethylene Glycol (Miralax) 17 gm DAILYPRN PRN ORAL Constipation 11/02/16 16:15 12/02/16 16:14 Sevelamer HCl (Renagel) 800 mg THREE TIMES A DAY ORAL 11/04/16 09:00 12/04/16 08:59 11/05/16 13:54 Temazepam (Restoril) 15 mg HSPRN PRN ORAL Insomnia 11/02/16 16:15 11/09/16 16:14 JAUN VARGHESE Nov 05, 2016 15:50
[2016-11-05 16:00] VITALS: BP 153/83
--- NOTE | 2016-11-05 18:10 | Internal Med Progress Note ---
Subjective Date of Service: Nov 05, 2016 Physician Name GreeneSamson Attending Physician Guy Jung MD Current Medications Medications (Trade) Dose Ordered Sig/Junior Route PRN Reason Start Time Stop Time Status Last Admin Dose Admin Acetaminophen (Tylenol) 650 mg Q4H PRN ORAL Mild Pain/Temp > 100.5 11/03/16 00:15 12/03/16 00:14 11/04/16 12:26 Albuterol/ Ipratropium (DuoNeb 0.5-3(2.5)mg/3ml) 3 ml Q4H PRN HHN Shortness of Breath 11/02/16 16:15 11/07/16 16:14 Amlodipine Besylate (Norvasc) 10 mg DAILY ORAL 11/03/16 09:00 12/03/16 08:59 11/05/16 09:00 Atorvastatin Calcium (Lipitor) 40 mg BEDTIME ORAL 11/04/16 21:00 12/04/16 20:59 11/04/16 21:05 Carvedilol (Coreg) 6.25 mg EVERY 12 HOURS ORAL 11/02/16 21:00 12/02/16 20:59 11/05/16 09:00 Cinacalcet (Sensipar) 90 mg QHS ORAL 11/04/16 21:00 12/04/16 20:59 11/04/16 20:58 Clonidine HCl (Catapres) 0.1 mg Q4H PRN ORAL bp over 165 syst 11/03/16 15:00 12/03/16 14:59 11/04/16 03:59 Dextrose (Dextrose 50%) STAT PRN IV Hypoglycemia 11/02/16 16:15 12/02/16 16:14 Heparin Sodium (Porcine) (Heparin 5000 units/ml) 5,000 units EVERY 12 HOURS SUBQ 11/02/16 21:00 12/02/16 20:59 11/05/16 09:04 Hydralazine HCl (Apresoline) 75 mg Q8HR ORAL 11/05/16 14:00 12/05/16 13:59 11/05/16 13:54 Irbesartan (Avapro) 300 mg DAILY ORAL 11/05/16 09:00 12/05/16 08:59 11/05/16 09:00 Morphine Sulfate (Morphine Sulfate) 2 mg Q4H PRN IVP Severe Pain (Pain Scale 7-10) 11/03/16 06:00 11/10/16 05:59 Ondansetron HCl (Zofran) 4 mg Q6H PRN IVP Nausea & Vomiting 11/02/16 16:15 12/02/16 16:14 Pantoprazole (Protonix) 40 mg DAILY ORAL 11/03/16 16:00 12/03/16 15:59 11/05/16 08:58 Polyethylene Glycol (Miralax) 17 gm DAILYPRN PRN ORAL Constipation 11/02/16 16:15 12/02/16 16:14 Sevelamer HCl (Renagel) 800 mg THREE TIMES A DAY ORAL 11/04/16 09:00 12/04/16 08:59 11/05/16 17:36 Temazepam (Restoril) 15 mg HSPRN PRN ORAL Insomnia 11/02/16 16:15 11/09/16 16:14 Allergies: Coded Allergies: No Known Allergies (Unverified , 11/02/16) ROS Limited/Unobtainable: No Constitutional: Reports: no symptoms HEENT: Reports: no symptoms Cardiovascular: Reports: no symptoms Respiratory: Reports: no symptoms Gastrointestinal/Abdominal: Reports: no symptoms Genitourinary: Reports: no symptoms Neurologic/Psychiatric: Reports: other - dizzy Subjective 61 YO M admitted with vertigo. Cover for Int Med-Dr Jung. Objective Last Vital Signs Date Time Temp Pulse Resp B/P Pulse Ox O2 Delivery O2 Flow Rate FiO2 11/05/16 16:00 97.0 71 18 153/83 99 Nasal Cannula 2.0 11/04/16 16:10 98 Laboratory Tests Test 11/05/16 07:15 White Blood Count 6.9 K/UL (4.8-10.8) Red Blood Count 3.19 M/UL (4.70-6.10) L Hemoglobin 10.2 G/DL (14.2-18.0) L Hematocrit 30.8 % (42.0-52.0) L Mean Corpuscular Volume 97 FL (80-99) Mean Corpuscular Hemoglobin 32.0 PG (27.0-31.0) H Mean Corpuscular Hemoglobin Concent 33.1 G/DL (32.0-36.0) Red Cell Distribution Width 12.3 % (11.6-14.8) Platelet Count 179 K/UL (150-450) Mean Platelet Volume 6.2 FL (6.5-10.1) L Neutrophils (%) (Auto) 64.2 % (45.0-75.0) Lymphocytes (%) (Auto) 16.1 % (20.0-45.0) L Monocytes (%) (Auto) 12.7 % (1.0-10.0) H Eosinophils (%) (Auto) 5.6 % (0.0-3.0) H Basophils (%) (Auto) 1.3 % (0.0-2.0) Sodium Level 141 mEQ/L (135-145) Potassium Level 4.0 mEQ/L (3.4-4.9) Chloride Level 93 mEQ/L (98-107) L Carbon Dioxide Level 30 mEQ/L (20-30) Anion Gap 18 (5-15) H Blood Urea Nitrogen 30 mg/dL (7-23) H Creatinine 7.4 mg/dL (0.7-1.2) H Estimat Glomerular Filtration Rate 7.5 mL/min (>60) Glucose Level 84 mg/dL (74-106) Calcium Level 8.7 mg/dL (8.6-10.2) Microbiology Date/Time Source Procedure Growth Status 11/02/16 18:10 Nasal Nares MRSA Culture - Final NO METHICILLIN RESISTANT STAPH AUREUS... Complete 11/02/16 18:10 Rectum VRE Culture - Final NO VANCOMYCIN RESISTANT ENTEROCOCCUS ... Complete Intake and Output 11/04/16 11/05/16 19:00 07:00 Intake Total 480 ml 240 ml Output Total 4201 ml Balance -3721 ml 240 ml Intake Oral 480 ml 240 ml Stool Total 1 ml Hemodialysis UF 4200 ml # Bowel Movements 1 Objective General: alert, cooperative, no distress, appears stated age Head: normocephalic, without obvious abnormality, atraumatic Eyes: conjunctivae/corneas clear. PERRL, EOM's intact Throat: lips, mucosa, and tongue normal. MMM Neck: supple, symmetrical, trachea midline, and no JVD Lungs: clear to auscultation bilaterally Heart: regular rate and rhythm, S1, S2 normal, no murmur, click, rub or gallop Abdomen: soft, non-tender, non-distended, bowel sounds normal; no masses or organomegaly Extremities: extremities normal, atraumatic, no cyanosis or edema Pulses: 2+ and symmetric Skin: skin color, texture, turgor normal; no rashes or lesions Neurologic: grossly normal, no focal deficits Assessment/Plan Problem List: (1) Nausea (2) Vertigo Assessment & Plan: Improving; cardiology W/U in progress. CT brain neg (3) ESRD (end stage renal disease) on dialysis Assessment & Plan: See nephrology note. Last hemodialysis 11/04/16 (4) CHF (congestive heart failure) Assessment & Plan: ?volume overload? See cardiology note. LVEF 60-65% (5) Hypertension Status: not improved SAMSON GREENE Nov 05, 2016 18:10
[2016-11-05 20:00] VITALS: BP 172/79
[2016-11-05] MEDS ORDERED: DuoNeb 0.5-3(2.5)mg/3ml neb HHN PRN (20:15)
[2016-11-05] MEDS ORDERED: Atorvastatin 20mg tab ORAL SCH (21:00)
[2016-11-05] MEDS ORDERED: Sensipar 30mg Tab ORAL SCH (21:00)
[2016-11-05] MEDS ORDERED: Morphine Sulfate 2mg/ml Inj IVP PRN (22:00)
--- NOTE | 2016-11-05 22:00 | Consultation ---
DATE OF CONSULTATION: 11/03/2016 CARDIOLOGY CONSULTATION REFERRING PHYSICIAN: Samson Bhat M.D. REASON FOR CONSULTATION: Management of presyncope and accelerated hypertension. HISTORY OF PRESENT ILLNESS: The patient is a very pleasant 61-year-old gentleman, who presents to the hospital with complaints of dizziness and vomiting postdialysis. Apparently, the patient has complaints of dizziness after dialysis, but at this time he checked his blood pressure and was quite elevated. A 911 was called and he was brought to this facility for further evaluation and management. On arrival to the hospital, blood pressure was 184/86. The patient was admitted to telemetry for further evaluation and management. PAST MEDICAL HISTORY: Hypertension, end-stage renal disease on hemodialysis. PAST SURGICAL HISTORY: Left AV graft placement in 2010. MEDICATIONS: Sensipar 90 mg p.o. daily, labetalol 100 mg p.o. twice daily, hydralazine 100 mg twice daily, clonidine 0.1 mg three times daily, omeprazole 20 mg p.o. daily, Renagel 800 mg p.o. three times daily, , hydralazine 50 mg p.o. four times daily as needed. ALLERGIES: No known drug allergies. SOCIAL HISTORY: Denies any tobacco, alcohol, or illicit drug use. REVIEW OF SYSTEMS: HEENT: Complains of dizziness and headaches. CONSTITUTIONAL: Complaints of generalized weakness, but no fever, chills, or night sweats. CARDIOVASCULAR: Denies any chest pain, shortness breath, PND, orthopnea, or leg swelling. PULMONARY: Denies any cough, hemoptysis, or wheezing. GASTROINTESTINAL: Denies any nausea, vomiting, diarrhea, constipation, abdominal pain, or GI bleed. Genitourinary: Denies any hematuria, dysuria, or incontinence, on hemodialysis 3 days a week. NEUROLOGY: Denies any motor dysfunction, sensory deficit, or altered speech. PHYSICAL EXAMINATION: VITAL SIGNS: Blood pressure 184/86, respirations 16, pulse of 78, O2 saturation 96% on room air, and temperature 98.2 degrees Fahrenheit. GENERAL: The patient is a very pleasant 61-year-old gentleman, in no apparent respiratory distress, alert and oriented x4. HEENT: Atraumatic and normocephalic. Anicteric. Pupils are equal, round, and reactive to light and accommodation. Extraocular muscles intact. JVP less than 5 cm. No carotid bruits. Carotid upstrokes 2+ bilaterally. CARDIOVASCULAR: Normal S1 and S2. Regular rate and rhythm. No murmurs, gallops, or rubs. PMI is at fourth intercostal space at the midclavicular line. LUNGS: Clear to auscultation bilaterally. ABDOMEN: Soft, nontender, and nondistended. No hepatosplenomegaly. Positive bowel sounds. EXTREMITIES: There is no evidence of edema, clubbing, or cyanosis. LABORATORY AND DIAGNOSTIC DATA: Chest x-ray showed cardiomegaly with no acute cardiopulmonary disease. A 2D echocardiography done, results pending. LABORATORY FINDINGS: Sodium is 141, potassium is 3.5, chloride 94, bicarbonate 34, BUN of 15, creatinine 4.1, glucose is 104. Calcium is 9.5. ProBNP was 48,123. Troponin x1 less than 0.3. A 12-lead electrocardiogram, sinus rhythm with LVH and repolarization abnormality. No ST and T-wave changes suggestive of ischemia. ASSESSMENT AND PLAN: The patient is a very pleasant 61-year-old gentleman seen in Cardiology consultation at request of Dr. Bhat. 1. Accelerated hypertension. The patient will be continued on a combination of hydralazine, irbesartan, and amlodipine for breakthrough hypertension. Clonidine is used every four hours. 2. Hypertensive heart disease with normal left ventricular ejection fraction. 3. Chronic diastolic congestive heart failure likely in the setting of end-stage renal disease. Diastolic data is suggestive of pseudo normal LV pattern consistent with grade 2 left ventricular diastolic dysfunction or moderately increased left atrial pressure. 4. We will continue with hemodialysis to decrease preload. Continue with afterload treatment, hydralazine and irbesartan, as well as calcium channel shireen. 5. We will try to adjust the dosage of antihypertensive, so we can control the blood pressure in better manner 6. Dizziness and presyncopal events most likely due to accelerated hypertension. The goal of therapy is to control the blood pressure pre and post dialysis. 7. required very tight blood pressure control in the outpatient setting. I would like to thank, Dr. Bhat for allowing me to participate in the care of this patient. Ian Wyatt M.D. DR: GÓMEZ JOB#: [id number] CC:
[2016-11-05] MEDS: HydrALAZINE 25mg tab ORAL SCH (22:51)
[2016-11-06] VITALS: BP 170/82
[2016-11-06] MEDS: HydrALAZINE 25mg tab ORAL SCH ×2 (05:41→14:27)
[2016-11-06 07:07] LABS: EOSINOPHILS % (AUTO) 5.2 % (0.0-3.0); LYMPHOCYTES % (AUTO) 15.6 % (20.0-45.0); MEAN CORPUSCULAR HEMOGLOBIN 31.8 PG (27.0-31.0); MEAN CORPUSCULAR HGB CONC 33.4 G/DL (32.0-36.0); MEAN CORPUSCULAR VOLUME 95 FL (80-99); MONOCYTES % (AUTO) 12.6 % (1.0-10.0); NEUTROPHILS % (AUTO) 65.7 % (45.0-75.0); PLATELET COUNT 160 K/UL (150-450); RED BLOOD COUNT 2.94 M/UL (4.70-6.10); RED CELL DISTRIBUTION WIDTH 12.2 % (11.6-14.8); WHITE BLOOD COUNT 7.8 K/UL (4.8-10.8)
[2016-11-06 07:08] LABS: CALCIUM 8.8 mg/dL (8.6-10.2); CREATININE 9.8 mg/dL (0.7-1.2); GLOMERULAR FILTRATION RATE 5.4 mL/min (>60); POTASSIUM 4.4 mEQ/L (3.4-4.9)
[2016-11-06 08:03] VITALS: BP 174/83
[2016-11-06] MEDS: Renagel 400mg cap ORAL SCH ×2 (08:50→13:55)
[2016-11-06] MEDS: Carvedilol 6.25mg Tab ORAL SCH (08:52)
[2016-11-06] MEDS: Heparin 5000 units/ml inj SUBQ SCH (08:53)
[2016-11-06] MEDS ORDERED: Irbesartan 150mg tablet ORAL SCH (09:00)
--- NOTE | 2016-11-06 09:51 | General Progress Note ---
Assessment/Plan Status: stable Assessment/Plan status: ESRD- HTN- Dizziness- Plan: HD 11/04 next 11/07 BP control, adjust meds Per consultants DC planning Subjective ROS Limited/Unobtainable: No Constitutional: Reports: malaise Allergies: Coded Allergies: No Known Allergies (Unverified , 11/02/16) Objective Last 24 Hour Vital Signs Date Time Temp Pulse Resp B/P Pulse Ox O2 Delivery O2 Flow Rate FiO2 11/06/16 09:12 170/83 11/06/16 08:58 75 174/83 11/06/16 08:52 75 174/83 11/06/16 08:51 174/83 11/06/16 08:03 98.2 75 20 174/83 95 Nasal Cannula 2.0 11/06/16 07:29 74 16 Room Air 11/06/16 05:41 150/77 11/06/16 00:00 97.6 71 19 170/82 95 Nasal Cannula 2.0 11/05/16 22:51 155/85 11/05/16 20:12 72 172/79 11/05/16 20:00 98.1 72 18 172/79 94 Nasal Cannula 2.0 11/05/16 16:00 97.0 71 18 153/83 99 Nasal Cannula 2.0 11/05/16 13:54 149/73 11/05/16 12:02 97.0 64 18 149/73 98 Nasal Cannula 2.0 11/05/16 12:00 65 Intake and Output 11/05/16 11/06/16 19:00 07:00 Intake Total 1400 ml Output Total 760 ml Balance 640 ml Intake Oral 1400 ml Output Urine Total 760 ml # Voids 3 # Bowel Movements 1 Laboratory Tests 11/06/16 05:20: Sodium Level 141, Potassium Level 4.4, Chloride Level 94L, Carbon Dioxide Level 28, Anion Gap 19H, Blood Urea Nitrogen 45H, Creatinine 9.8H, Estimat Glomerular Filtration Rate 5.4, Glucose Level 81, Calcium Level 8.8 11/06/16 05:25: White Blood Count 7.8, Red Blood Count 2.94L, Hemoglobin 9.4L, Hematocrit 28.0L , Mean Corpuscular Volume 95, Mean Corpuscular Hemoglobin 31.8H, Mean Corpuscular Hemoglobin Concent 33.4, Red Cell Distribution Width 12.2, Platelet Count 160, Mean Platelet Volume 7.0, Neutrophils (%) (Auto) 65.7, Lymphocytes (% ) (Auto) 15.6L, Monocytes (%) (Auto) 12.6H, Eosinophils (%) (Auto) 5.2H, Basophils (%) (Auto) 1.0 Height (Feet): 5 Height (Inches): 4.00 Weight (Pounds): 144 General Appearance: no apparent distress Objective no change in physical exam TONNY MTZ Nov 06, 2016 09:51
[2016-11-06 11:49] VITALS: BP 156/84
--- NOTE | 2016-11-06 14:15 | Diagnostic Imaging Report ---
Indication: Dizziness and vertigo Technique: sagittal T1 fast spin echo, axial T1 FLAIR, axial T2 FLAIR, axial T2 FS PROPELLER, axial T2* GRE, axial diffusion weighted images. ADC and exponential ADC maps generated Comparison: Head CT 11/02/2016 Findings: There is a punctate focus of restricted diffusion in the right side of the midbrain. No associated T2 abnormality. No other foci of restricted diffusion to suggest acute infarction. No acute hemorrhage nor edema. No mass effect. No midline shift. There are bilateral periventricular T2 hyperintensities, some of which appear focal and oriented transverse. Old lacunar infarcts are seen in the bilateral basal ganglia. The vascular flow voids are preserved. There is mild age-related enlargement of the ventricles and extra exit CSF spaces. Visualized orbits and sinuses are unremarkable. Impression: Tiny punctate focus of restricted diffusion in the right side of the midbrain, consistent with acute lacunar infarct. Negative for acute intracranial bleed or mass effect Bilateral periventricular T2 hyperintensities. Most likely represent chronic white matter ischemic changes, but the pattern of these raises also the possibility of demyelinating disease. Correlate with clinical findings is recommended. Old lacunar infarcts as described Findings discussed by phone with Dr. Bhat at 1409 on 11/06/2016
[2016-11-06 15:46] VITALS: BP 151/84
[2016-11-06] MEDS ORDERED: Miralax 17gm pkt ORAL PRN (16:15)
--- NOTE | 2016-11-06 18:56 | Internal Med Progress Note ---
Subjective Date of Service: Nov 06, 2016 Physician Name Samson Greene Attending Physician Guy Jung MD Current Medications Medications (Trade) Dose Ordered Sig/Junior Route PRN Reason Start Time Stop Time Status Last Admin Dose Admin Acetaminophen (Tylenol) 650 mg Q4H PRN ORAL Mild Pain/Temp > 100.5 11/05/16 20:15 12/05/16 20:14 Albuterol/ Ipratropium (DuoNeb 0.5-3(2.5)mg/3ml) 3 ml Q4H PRN HHN Shortness of Breath 11/05/16 20:15 11/10/16 20:14 Amlodipine Besylate (Norvasc) 10 mg DAILY ORAL 11/06/16 09:00 12/06/16 08:59 11/06/16 08:58 Atorvastatin Calcium (Lipitor) 40 mg BEDTIME ORAL 11/05/16 21:00 12/05/16 20:59 11/05/16 20:13 Carvedilol (Coreg) 6.25 mg EVERY 12 HOURS ORAL 11/05/16 21:00 12/05/16 20:59 11/06/16 08:52 Cinacalcet (Sensipar) 90 mg QHS ORAL 11/05/16 21:00 12/05/16 20:59 11/05/16 22:50 Clonidine HCl (Catapres) 0.1 mg Q4H PRN ORAL bp over 165 syst 11/05/16 23:00 12/05/16 22:59 11/06/16 08:51 Dextrose (Dextrose 50%) STAT PRN IV Hypoglycemia 11/06/16 16:15 12/06/16 16:14 Heparin Sodium (Porcine) (Heparin 5000 units/ml) 5,000 units EVERY 12 HOURS SUBQ 11/05/16 21:00 12/05/16 20:59 11/06/16 08:53 Hydralazine HCl (Apresoline) 75 mg Q8HR ORAL 11/05/16 22:00 12/05/16 21:59 11/06/16 14:27 Irbesartan (Avapro) 300 mg DAILY ORAL 11/06/16 09:00 12/06/16 08:59 11/06/16 09:12 Morphine Sulfate (Morphine Sulfate) 2 mg Q4H PRN IVP Severe Pain (Pain Scale 7-10) 11/05/16 22:00 11/12/16 21:59 Ondansetron HCl (Zofran) 4 mg Q6H PRN IVP Nausea & Vomiting 11/05/16 22:15 12/05/16 22:14 Pantoprazole (Protonix) 40 mg DAILY ORAL 11/06/16 09:00 12/06/16 08:59 11/06/16 08:51 Polyethylene Glycol (Miralax) 17 gm DAILYPRN PRN ORAL Constipation 11/06/16 16:15 12/06/16 16:14 Sevelamer HCl (Renagel) 800 mg THREE TIMES A DAY ORAL 11/06/16 09:00 12/06/16 08:59 11/06/16 13:55 Temazepam (Restoril) 15 mg HSPRN PRN ORAL Insomnia 11/06/16 16:15 11/13/16 16:14 Allergies: Coded Allergies: No Known Allergies (Unverified , 11/02/16) ROS Limited/Unobtainable: No Constitutional: Reports: no symptoms HEENT: Reports: no symptoms Cardiovascular: Reports: no symptoms Respiratory: Reports: no symptoms Gastrointestinal/Abdominal: Reports: no symptoms Genitourinary: Reports: no symptoms Neurologic/Psychiatric: Reports: no symptoms Subjective 61 YO M admitted with vertigo. Now acute lacunar Infarct. Await neuro consult. Cover for Int Med-Dr Jung. Objective Last Vital Signs Date Time Temp Pulse Resp B/P Pulse Ox O2 Delivery O2 Flow Rate FiO2 11/06/16 15:46 98.1 79 20 151/84 98 Nasal Cannula 2.0 11/04/16 16:10 98 Laboratory Tests Test 11/06/16 05:20 11/06/16 05:25 Sodium Level 141 mEQ/L (135-145) Potassium Level 4.4 mEQ/L (3.4-4.9) Chloride Level 94 mEQ/L (98-107) L Carbon Dioxide Level 28 mEQ/L (20-30) Anion Gap 19 (5-15) H Blood Urea Nitrogen 45 mg/dL (7-23) H Creatinine 9.8 mg/dL (0.7-1.2) H Estimat Glomerular Filtration Rate 5.4 mL/min (>60) Glucose Level 81 mg/dL (74-106) Calcium Level 8.8 mg/dL (8.6-10.2) White Blood Count 7.8 K/UL (4.8-10.8) Red Blood Count 2.94 M/UL (4.70-6.10) L Hemoglobin 9.4 G/DL (14.2-18.0) L Hematocrit 28.0 % (42.0-52.0) L Mean Corpuscular Volume 95 FL (80-99) Mean Corpuscular Hemoglobin 31.8 PG (27.0-31.0) H Mean Corpuscular Hemoglobin Concent 33.4 G/DL (32.0-36.0) Red Cell Distribution Width 12.2 % (11.6-14.8) Platelet Count 160 K/UL (150-450) Mean Platelet Volume 7.0 FL (6.5-10.1) Neutrophils (%) (Auto) 65.7 % (45.0-75.0) Lymphocytes (%) (Auto) 15.6 % (20.0-45.0) L Monocytes (%) (Auto) 12.6 % (1.0-10.0) H Eosinophils (%) (Auto) 5.2 % (0.0-3.0) H Basophils (%) (Auto) 1.0 % (0.0-2.0) Intake and Output 11/05/16 11/06/16 19:00 07:00 Intake Total 1400 ml Output Total 760 ml Balance 640 ml Intake Oral 1400 ml Output Urine Total 760 ml # Voids 3 # Bowel Movements 1 Objective General: alert, cooperative, no distress, appears stated age Head: normocephalic, without obvious abnormality, atraumatic Eyes: conjunctivae/corneas clear. PERRL, EOM's intact Throat: lips, mucosa, and tongue normal. MMM Neck: supple, symmetrical, trachea midline, and no JVD Lungs: clear to auscultation bilaterally Heart: regular rate and rhythm, S1, S2 normal, no murmur, click, rub or gallop Abdomen: soft, non-tender, non-distended, bowel sounds normal; no masses or organomegaly Extremities: extremities normal, atraumatic, no cyanosis or edema Pulses: 2+ and symmetric Skin: skin color, texture, turgor normal; no rashes or lesions Neurologic: grossly normal, no focal deficits Assessment/Plan Problem List: (1) Nausea (2) Vertigo Assessment & Plan: Improving; cardiology W/U in progress. CT brain neg (3) ESRD (end stage renal disease) on dialysis Assessment & Plan: See nephrology note. Last hemodialysis 11/07/16 (4) CHF (congestive heart failure) Assessment & Plan: ?volume overload? See cardiology note. LVEF 60-65% (5) Hypertension (6) Acute cerebral infarction Assessment & Plan: Right lacunar infarct. Await neurology consult. PT/OT Status: not improved SAMSON GREENE Nov 06, 2016 18:56
--- NOTE | 2016-11-06 18:56 | Pulmonology Progress Note ---
Assessment/Plan Problems: (1) Hypertensive urgency (2) Dizziness (3) ESRF (end stage renal failure) Assessment/Plan bp is better HD by nephrologis symptomatic treatment all labs, notes, studies reviewed dc planning for today Subjective ROS Limited/Unobtainable: No Interval Events: no new complains Allergies: Coded Allergies: No Known Allergies (Unverified , 11/02/16) Objective Last 24 Hour Vital Signs Date Time Temp Pulse Resp B/P Pulse Ox O2 Delivery O2 Flow Rate FiO2 11/06/16 15:46 98.1 79 20 151/84 98 Nasal Cannula 2.0 11/06/16 14:27 157/84 11/06/16 11:49 97.6 68 19 156/84 97 Nasal Cannula 2.0 11/06/16 09:12 170/83 11/06/16 08:58 75 174/83 11/06/16 08:52 75 174/83 11/06/16 08:51 174/83 11/06/16 08:03 98.2 75 20 174/83 95 Nasal Cannula 2.0 11/06/16 07:29 74 16 Room Air 11/06/16 05:41 150/77 11/06/16 00:00 97.6 71 19 170/82 95 Nasal Cannula 2.0 11/05/16 22:51 155/85 11/05/16 20:12 72 172/79 11/05/16 20:00 98.1 72 18 172/79 94 Nasal Cannula 2.0 Intake and Output 11/05/16 11/06/16 19:00 07:00 Intake Total 1400 ml Output Total 760 ml Balance 640 ml Intake Oral 1400 ml Output Urine Total 760 ml # Voids 3 # Bowel Movements 1 General Appearance: WD/WN HEENT: normocephalic Respiratory/Chest: chest wall non-tender, lungs clear Cardiovascular: normal peripheral pulses, normal rate Abdomen: normal bowel sounds, soft, non tender Genitourinary: normal external genitalia Skin: no rash Laboratory Tests 11/06/16 05:20: Sodium Level 141, Potassium Level 4.4, Chloride Level 94L, Carbon Dioxide Level 28, Anion Gap 19H, Blood Urea Nitrogen 45H, Creatinine 9.8H, Estimat Glomerular Filtration Rate 5.4, Glucose Level 81, Calcium Level 8.8 11/06/16 05:25: White Blood Count 7.8, Red Blood Count 2.94L, Hemoglobin 9.4L, Hematocrit 28.0L , Mean Corpuscular Volume 95, Mean Corpuscular Hemoglobin 31.8H, Mean Corpuscular Hemoglobin Concent 33.4, Red Cell Distribution Width 12.2, Platelet Count 160, Mean Platelet Volume 7.0, Neutrophils (%) (Auto) 65.7, Lymphocytes (% ) (Auto) 15.6L, Monocytes (%) (Auto) 12.6H, Eosinophils (%) (Auto) 5.2H, Basophils (%) (Auto) 1.0 Current Medications Medications (Trade) Dose Ordered Sig/Junior Route PRN Reason Start Time Stop Time Status Last Admin Dose Admin Acetaminophen (Tylenol) 650 mg Q4H PRN ORAL Mild Pain/Temp > 100.5 11/05/16 20:15 12/05/16 20:14 Albuterol/ Ipratropium (DuoNeb 0.5-3(2.5)mg/3ml) 3 ml Q4H PRN HHN Shortness of Breath 11/05/16 20:15 11/10/16 20:14 Amlodipine Besylate (Norvasc) 10 mg DAILY ORAL 11/06/16 09:00 12/06/16 08:59 11/06/16 08:58 Atorvastatin Calcium (Lipitor) 40 mg BEDTIME ORAL 11/05/16 21:00 12/05/16 20:59 11/05/16 20:13 Carvedilol (Coreg) 6.25 mg EVERY 12 HOURS ORAL 11/05/16 21:00 12/05/16 20:59 11/06/16 08:52 Cinacalcet (Sensipar) 90 mg QHS ORAL 11/05/16 21:00 12/05/16 20:59 11/05/16 22:50 Clonidine HCl (Catapres) 0.1 mg Q4H PRN ORAL bp over 165 syst 11/05/16 23:00 12/05/16 22:59 11/06/16 08:51 Dextrose (Dextrose 50%) STAT PRN IV Hypoglycemia 11/06/16 16:15 12/06/16 16:14 Heparin Sodium (Porcine) (Heparin 5000 units/ml) 5,000 units EVERY 12 HOURS SUBQ 11/05/16 21:00 12/05/16 20:59 11/06/16 08:53 Hydralazine HCl (Apresoline) 75 mg Q8HR ORAL 11/05/16 22:00 12/05/16 21:59 11/06/16 14:27 Irbesartan (Avapro) 300 mg DAILY ORAL 11/06/16 09:00 12/06/16 08:59 11/06/16 09:12 Morphine Sulfate (Morphine Sulfate) 2 mg Q4H PRN IVP Severe Pain (Pain Scale 7-10) 11/05/16 22:00 11/12/16 21:59 Ondansetron HCl (Zofran) 4 mg Q6H PRN IVP Nausea & Vomiting 11/05/16 22:15 12/05/16 22:14 Pantoprazole (Protonix) 40 mg DAILY ORAL 11/06/16 09:00 12/06/16 08:59 11/06/16 08:51 Polyethylene Glycol (Miralax) 17 gm DAILYPRN PRN ORAL Constipation 11/06/16 16:15 12/06/16 16:14 Sevelamer HCl (Renagel) 800 mg THREE TIMES A DAY ORAL 11/06/16 09:00 12/06/16 08:59 11/06/16 13:55 Temazepam (Restoril) 15 mg HSPRN PRN ORAL Insomnia 11/06/16 16:15 11/13/16 16:14 AJUN VARGHESE Nov 06, 2016 18:56
[2016-11-06] MEDS ORDERED: Aspirin Baby 81mg NG SCH (20:00)
--- NOTE | 2016-11-07 12:23 | Discharge Summary ---
Discharge Summary Hospital Course Date of Admission Nov 02, 2016 at 15:09 Date of Discharge Nov 06, 2016 at 17:00 Admitting Diagnosis dizziness/hypertension CANDICE Norman is a 61 year old male who was admitted on Nov 02, 2016 at 15:09 for Dizziness,Hypertension Hospital Course dc summary #[id number] Discharge Medications Continued Medications: Acetaminophen* (Acetaminophen 325MG Tablet*) 325 Mg Tablet 325 MG ORAL Q4H PRN for For Pain, TAB Amlodipine Besylate (Norvasc) 10 Mg Tablet 10 MG ORAL DAILY, TAB Atorvastatin Calcium* (Atorvastatin Calcium*) 20 Mg Tablet 20 MG ORAL BEDTIME, TAB Carvedilol* (Carvedilol*) 6.25 Mg Tablet 6.25 MG ORAL EVERY 12 HOURS, TAB Cinacalcet* (Sensipar*) 30 Mg Tablet 90 MG ORAL DAILY, TAB Cinacalcet* (Sensipar*) 30 Mg Tablet 90 MG ORAL DAILY, TAB Dexlansoprazole (Dexilant) 30 Mg Cap.bp 30 MG ORAL DAILY, MG Hydralazine Hcl* (Hydralazine Hcl*) 50 Mg Tablet 50 MG ORAL QID, TAB Sevelamer Hcl (Renagel) 800 Mg Tablet 2400 MG ORAL THREE TIMES A DAY, #90 TAB 0 Refills Valsartan (Diovan) 160 Mg Tablet 320 MG ORAL DAILY, TAB Discharge Condition Upon Discharge: stable Discharge Disposition Patient was discharged to Home () Discharge Diagnoses: Discharge Instructions Discharge Instructions Special Instructions I have been assigned to complete a D/C Summary on this account. I was not involved in the patient management Racheal Quintero NP ([facility]) Nov 07, 2016 12:23
--- NOTE | 2016-11-07 12:56 | Diagnostic Imaging Report ---
APPROVED REPORT CPT Code: 46587 Vascular Symptoms Dizziness and Vertigo Comments: Left forearm AVF. Doppler Spectral Velocity Analysis RightLeft dICA81/20 cm/xhNIA237/32 cm/s mICA76/15 cm/wsCFZ104/38 cm/s pICA72/18 cm/spICA75/19 cm/s ECA87/11 cm/sECA90/15 cm/s dCCA63/14 cm/sdCCA60/13 cm/s mCCA63/12 cm/smCCA82/15 cm/s pCCA70/11 cm/srYDU285/20 cm/s Vert.69/14 cm/sVert.44/10 cm/s Right ICA/CCA ratio1.2Left ICA/CCA ratio1.0 RIGHT SIDE: CCA/BULB - Imaging reveals irregular, minimal plaque in the CCA and carotid carotid arteries. VERTEBRAL - The vertebral artery is patent, without evidence of stenosis or steal. LEFT SIDE: CCA/BULB - Imaging reveals irregular, minimal plaque in the CCA and carotid carotid arteries. VERTEBRAL - The vertebral artery is patent, without evidence of stenosis or steal.
--- NOTE | 2016-11-08 02:15 | Discharge Summary 2 SIG ---
DATE OF ADMISSION: 11/02/2016 DATE OF DISCHARGE: 11/06/2016 REASON FOR ADMISSION: 61-year-old male presented to emergency room with complaints of dizziness and vomiting. The patient had undergone dialysis earlier today. The patient completed dialysis. reported that the patient always felt dizzy after dialysis, however, she called 911 today because he also had a headache and vomited. Blood pressure was elevated in the triage, 184/86. No leukocytosis. Stable hemoglobin and hematocrit. EKG revealed left ventricular hypertrophy with repolarization abnormality. Normal sinus rhythm. Pro BNP - 48,123. Electrolytes stable. Troponin negative. Chest x-ray revealed cardiomegaly. CT of the head was negative for any acute intracranial bleeding. BUN and creatinine consistent with end-stage renal disease. BUN -15 and creatinine -4.1. The patient was given hydralazine for blood pressure control and admitted to telemetry. ADMITTING DIAGNOSES: 1. Hypertensive urgency. 2. End-stage renal disease, on hemodialysis. 3. Dizziness. HOSPITAL STAY: The patient was admitted to telemetry. Cardiology consult was requested. Echocardiogram revealed ejection fraction of 60% to 65%, and right ventricular systolic pressure of 36. It also demonstrated mild pulmonary hypertension and moderate diastolic dysfunction. Soliciting Freight Agent optimized antihypertensive medication regimen. Dialysis will reduce preload , and ARB and hydralazine were added to reduce afterload. Continue calcium channel shireen and clonidine on as-needed for breakthrough. MRI of the brain revealed no acute intracranial pathology, but showed old lacunar infarct. Carotid duplex scan was essentially unremarkable. According to rolls mill operator, vertigo was likely secondary to accelerated hypertension, which resolved after blood pressure was controlled. Hemodialysis was done as per Nephrology order. Renal parameters and electrolytes were closely monitored. Supplemental oxygen and pulmonary toilet were provided as needed. Practice Director followed. No pulmonary issues at this time. As mentioned above, chest x-ray with evidence of cardiomegaly, but no other acute cardiopulmonary pathology. Blood pressure stabilized. The patient's clinical condition improved. The patient was able to be discharged home. DISCHARGE DIAGNOSES: 1. Hypertensive urgency. 2. End-stage renal disease, on hemodialysis. 3. Dizziness likely secondary to accelerated hypertension. 4. Chronic diastolic congestive heart failure. DISCHARGE MEDICATIONS: See medication reconciliation list. DISCHARGE INSTRUCTIONS: The patient was discharged home. Follow up with primary medical doctor. Guy Jung M.D. I have been assigned to dictate discharge summary on this account and I was not involved in the patient's management. Racheal Quintero (Vanchtein) NTyshawn DR: ARTURO JOB#: [id number] CC: DESIRE
== END 2016-11-06 17:00 | disposition home or self-care (01) | DRG 199 ==
LOC: EDBD 14:37 → EMR 15:00 → 2E 15:09 → EDBEDREQ 20:04 → 3E 11-05 18:45
PROC: 5A1D00Z (ICD-10-PCS; principal; 2016-11-06)
DX: I16.0 Hypertensive urgency (principal); N18.6 End stage renal disease; I50.32 Chronic diastolic (congestive) heart failure; I12.0 Hypertensive chronic kidney disease with stage 5 chronic kidney disease or end stage renal disease; Z99.2 Dependence on renal dialysis; I27.2 Other secondary pulmonary hypertension; Z86.73 Personal history of transient ischemic attack (TIA), and cerebral infarction without residual deficits
CPT/HCPCS: 36415; 70450; 70551; 71010; 80048; 80053; 80061; 82550; 82553; 82607; 82977; 83036; 83540; 83550; 83735; 83880; 84100; 84443; 84484; 84550; 85025; 86140; 87081; 93005; 93306; 93880; 94664; J2405; J7620